=== PATIENT | female | born 1970 | race Caucasian/White ===

== ENCOUNTER 2023-01-31 14:02 | Emergency (ER) | payer BC, SELFPAY ==
[2023-01-31 14:15] VITALS: BP 149/91; PULSE 78; RESP 18; TEMP 37.2; O2SAT 100; BMI 28.3
--- NOTE | 2023-01-31 14:20 | EXP.UTC ---
Discharge Plan Disposition Patient Disposition: Home, Self-Care Condition: Good Prescriptions Prescriptions: New amoxicillin [amoxicillin] 875 mg tablet 875 mg PO Q12H Qty: 20 0RF benzonatate [benzonatate] 100 mg capsule 100 mg PO TIDP PRN (Reason: Cough) Qty: 30 0RF methylprednisolone 4 mg Tablets,Dose Pack 4 mg PO DIRECTED Qty: 21 0RF No Action losartan 50 mg tablet 50 mg PO DAILY clonidine HCl 0.1 mg tablet 0.15 mg PO DAILY Patient Comments: TAKE 1 AND 1/2 TABLETS BY MOUTH AT BEDTIME FOR TEETH GRINDING buspirone 10 mg tablet 10 mg PO DAILY hydroxyzine HCl 25 mg tablet 25 mg PO BID PRN (Reason: Anxiety) Patient Comments: TAKE 1 OR 2 TABLETS BY MOUTH 2 TIMES DAILY NEEDED FOR ANXIETY hydrochlorothiazide 25 mg tablet 25 mg PO DAILY Patient Comments: TAKE 1 TABLET BY MOUTH DAILY norethindrone ac-eth estradiol 1-20 mg-mcg tablet 1 tab PO DAILY Patient Comments: TAKE 1 TABLET BY MOUTH ONCE DAILY metformin 500 mg tablet extended release 24 hr 500 mg PO DAILY Patient Comments: TAKE 1 TABLET BY MOUTH DAILY WITH BREAKFAST desvenlafaxine succinate 25 mg tablet extended release 24 hr 25 mg PO DAILY Patient Comments: TAKE 1 TABLET BY MOUTH EVERY DAY Referrals Follow up/Referrals: Provider,Referral, MD [Primary Care Provider] - See instructions Activity Restrictions/Add. Instructions Additional Instructions/Restrictions: Drink plenty of fluids. Take tylenol or ibuprofen for pain or fever. Take the medications as directed. Follow up with your regular doctor. GO TO THE ER FOR ANY WORSENING SYMPTOMS Clinical Impressions Clinical Impression: Otitis media, Sinusitis Stand Alone Forms Stand Alone Forms: Work/School Release Instructions Patient Instructions: Sinusitis, Middle Ear Infection, DI for Sinusitis Discharge ED Provider: Miguel Seay [facility] HPI General Stated complaint: upper respitory, sore throat,ear pain Time Seen by Provider: 01/31/23 14:20 History of Present Illness Provider Complaint: She states that for the past 2 days she has had worsening sinus congestion and sore throat. Related Data Home Medications Medication Instructions Recorded Confirmed buspirone 10 mg tablet 10 mg PO DAILY 01/31/23 01/31/23 clonidine HCl 0.1 mg tablet 0.15 mg PO DAILY teeth grinding 01/31/23 01/31/23 desvenlafaxine succinate 25 mg 25 mg PO DAILY 01/31/23 01/31/23 tablet,extended release 24 hr hydrochlorothiazide 25 mg tablet 25 mg PO DAILY 01/31/23 01/31/23 hydroxyzine HCl 25 mg tablet 25 mg PO BID PRN Anxiety 01/31/23 01/31/23 losartan 50 mg tablet 50 mg PO DAILY 01/31/23 01/31/23 metformin 500 mg tablet,extended 500 mg PO DAILY 01/31/23 01/31/23 release 24 hr norethindrone acetate 1 mg-ethinyl 1 tab PO DAILY b/c 01/31/23 01/31/23 estradiol 20 mcg tablet Previous Rx's Medication Instructions Recorded amoxicillin 875 mg tablet 875 mg PO Q12H #20 tabs 01/31/23 benzonatate 100 mg capsule 100 mg PO TIDP PRN Cough #30 caps 01/31/23 methylprednisolone 4 mg tablets in 4 mg PO DIRECTED #21 tabs 01/31/23 a dose pack Allergies Allergy/AdvReac Type Severity Reaction Status Date / Time bupropion [From Wellbutrin] Allergy Verified 01/31/23 14:34 ciprofloxacin [From Cipro] Allergy Verified 01/31/23 14:34 [facility] Disclaimer: The information contained in this section may have been updated after the patient was seen, as this information can be updated by other users. Social History Smoking Status: Never smoker alcohol intake: never current occupational status: employed Travel in the last 8 weeks: None ROS Obtained: Yes All systems reviewed & no additional complaints except as documented Constitutional Constitutional: Reports chills and Reports fever(s) Eyes Eyes: Denies eye discharge ENT Ears, Nose, Mouth, and Throat: Reports as per HPI Cardiovascul
[2023-01-31 14:31] LABS: UTC Strep Screen (Rapid) Negative (Negative)
[2023-01-31 15:05] VITALS: BP 149/91; PULSE 78; RESP 18; TEMP 37.2; O2SAT 100
== END 2023-01-31 15:05 | disposition home or self-care (01) ==
PROVIDERS: Emergency Provider Nurse Practitioner Family; PCP Pediatrics
DX: J01.90 Acute sinusitis, unspecified (principal); H66.93 Otitis media, unspecified, bilateral; J02.9 Acute pharyngitis, unspecified; R09.81 Nasal congestion
CPT/HCPCS: 87880; 99204; 99212; G0463

== ENCOUNTER 2024-01-29 12:23 | Inpatient (IN) | payer BC, SELFPAY ==
[2024-01-29] VITALS (14 sets, daily range): BP systolic 127–160; BP diastolic 74–98; PULSE 80–110; RESP 18; TEMP 36.8–36.9; O2SAT 97–100; BMI 28.3
[2024-01-29 13:16] LABS: Microscopic, Urine URINE MICROSCOPIC (MICROSCOPIC)
--- NOTE | 2024-01-29 13:19 | ED_ITS ---
<Statement entered by Ada Kwan DO - 01/29/24 22:59> I was consulted by the JOHNATHAN, and we discussed the complexity of the problems being addressed. I approved the treatment and management plan for this patient's care in the emergency department, thus performing a substantive portion of the medical decision making. I was involved with care after time of signout from previous provider at 1500 Ada Kwan DO Discharge Plan Disposition Patient Disposition: Admitted Prescriptions Prescriptions: No Action losartan 50 mg tablet 50 mg PO DAILY clonidine HCl 0.1 mg tablet 0.15 mg PO DAILY Patient Comments: TAKE 1 AND 1/2 TABLETS BY MOUTH AT BEDTIME FOR TEETH GRINDING buspirone 10 mg tablet 10 mg PO DAILY hydroxyzine HCl 25 mg tablet 25 mg PO BID PRN (Reason: Anxiety) Patient Comments: TAKE 1 OR 2 TABLETS BY MOUTH 2 TIMES DAILY NEEDED FOR ANXIETY hydrochlorothiazide 25 mg tablet 25 mg PO DAILY Patient Comments: TAKE 1 TABLET BY MOUTH DAILY norethindrone ac-eth estradiol 1-20 mg-mcg tablet 1 tab PO DAILY Patient Comments: TAKE 1 TABLET BY MOUTH ONCE DAILY metformin 500 mg tablet extended release 24 hr 500 mg PO DAILY Patient Comments: TAKE 1 TABLET BY MOUTH DAILY WITH BREAKFAST desvenlafaxine succinate 25 mg tablet extended release 24 hr 25 mg PO DAILY Patient Comments: TAKE 1 TABLET BY MOUTH EVERY DAY amoxicillin [amoxicillin] 875 mg tablet 875 mg PO Q12H Qty: 20 0RF benzonatate [benzonatate] 100 mg capsule 100 mg PO TIDP PRN (Reason: Cough) Qty: 30 0RF methylprednisolone 4 mg Tablets,Dose Pack 4 mg PO DIRECTED Qty: 21 0RF Referrals Follow up/Referrals: Rain Watts MD [Primary Care Provider] - See instructions Clinical Impressions Clinical Impression: Sepsis without septic shock, Acute hemorrhagic colitis Print Language Print Language: Libyan Discharge ED Provider: Ada Kwan General Adult HPI <DAMARIS Rayo - Last Filed: 01/29/24 17:17> General Chief complaint: Abdominal Pain Stated complaint: stomach pain Time Seen by Provider: 01/29/24 13:04 Mode of Arrival: Ambulatory Source of Information: Patient Limitations: No Limitations Description of Symptoms (Recalled from ER Triage Doc. by RN): PT REPORTS LOWER ABDOMINAL PAIN AND CRAMPING THAT STARTED ABOUT 0900 THIS AM. PT C/O NAUSEA, EMESIS X 1 AND BLOODY DIARRHEA History of Present Illness HPI narrative: Patient presents for evaluation of lower abdominal pain. Patient woke up this morning and around 9 AM began having crampy abdominal pain. She has since started having diarrhea that she noticed blood as well. She denies any fever chills hemoptysis hematochezia melena. Patient has never had abdominal surgery. She does not have any previous history of GI issues including Crohn's ulcerative colitis IBS or diverticulitis however her mother does have a history of diverticulosis and diverticulitis. Patient was unable to keep down fluids this morning has not tried since. She is still passing gas however. She denies any fever chills hemoptysis hematemesis hematuria. She is a diabetic maintained on insulin has a history of high blood pressure on losartan and hydrochlorothiazide, and depression. Related Data Home Medications ?Medication ?Instructions ?Recorded ?Confirmed buspirone 10 mg tablet 10 mg PO DAILY 01/31/23 01/31/23 clonidine HCl 0.1 mg tablet 0.15 mg PO DAILY teeth grinding 01/31/23 01/31/23 desvenlafaxine succinate 25 mg 25 mg PO DAILY 01/31/23 01/31/23 tablet,extended release 24 hr hydrochlorothiazide 25 mg tablet 25 mg PO DAILY 01/31/23 01/31/23 hydroxyzine HCl 25 mg tablet 25 mg PO BID PRN Anxiety 01/31/23 01/31/23 losartan 50 mg tablet 50 mg PO DAILY 01/31/23 01/31/23 metformin 500 mg tablet,extended 500 mg PO DAILY 01/31/23 01/31/23 release 24 hr norethindrone acetate 1 mg-ethinyl 1 tab PO DAILY b/c 01/31/23 01/31/23 estradiol 20 mcg tablet Previous Rx's ?Medication ?Instructions ?Recorded amoxicillin 875 mg tablet 875 mg PO Q12H #20 tabs 01/31/23 benzonatate 100 mg capsule 100 mg PO TIDP PRN Cough #30 caps 01/31/23 methylprednisolone 4 mg tablets in 4 mg PO DIRECTED #21 tabs 01/31/23 a dose pack Allergies Allergy/AdvReac Type Severity Reaction Status Date / Time bupropion [From Wellbutrin] Allergy Verified 01/31/23 14:34 ciprofloxacin [From Cipro] Allergy Verified 01/31/23 14:34 PFS <DAMARIS Rayo - Last Filed: 01/29/24 17:17> [facility] Disclaimer: The information contained in this section may have been updated after the patient was seen, as this information can be updated by other users. Social History (Updated 01/31/23 @ 15:03 by Miguel Seay APRN) Smoking Status: Never smoker alcohol intake: never current occupational status: employed Travel in the last 8 weeks: None <DAMARIS Rayo - Last Filed: 01/29/24 17:17> ROS Obtained: Yes Systems reviewed as appropriate & no additional complaints except as documented Physical Exam <DAMARIS Rayo - Last Filed: 01/29/24 17:17> General General appearance: alert and in no apparent distress Neck Neck exam: Present lymphadenopathy Respiratory Respiratory exam: Present normal lung sounds bilaterally Cardiovascular Cardiovascular exam: Present regular rate Neurological Exam Neurological exam: Present alert and oriented X3 Medical Decision Making <DAMARIS Rayo - Last Filed: 01/29/24 17:17> Medical Records Medical records reviewed: Yes I reviewed the patient's medical records. Screening: Per USPSTF and CDC recommendations, given the prevalence of disease in our region, it is our hospital?s policy to screen for HIV and viral Hepatitis for all patients aged 18 and over and those with ongoing risk factors. Kit Inquiry Pt receiving controlled substance: No Vital Signs: 01/29/24 12:25 01/29/24 12:31 01/29/24 13:00 Temperature 98.4 F Temperature Source Oral Pulse Rate 110 H 99 H Pulse Rate [Radial] 90 Respiratory Rate 18 Blood Pressure 150/98 H 139/82 Blood Pressure [Right Arm] 150/98 H Blood Pressure Mean 112 104 Blood Pressure Mean [Right Arm] 115 Blood Pressure Source [Right Arm] Automatic Cuff Blood Pressure Position [Right Arm] Sitting 02 Sat by Pulse Oximetry 100 99 99 Oxygen Delivery Method Room Air Room Air Room Air 01/29/24 13:30 01/29/24 14:00 01/29/24 14:30 Temperature Temperature Source Pulse Rate 95 H 87 85 Pulse Rate [Radial] Respiratory Rate Blood Pressure 139/85 145/88 H 129/74 Blood Pressure [Right Arm] Blood Pressure Mean 95 Blood Pressure Mean [Right Arm] Blood Pressure Source [Right Arm] Blood Pressure Position [Right Arm] 02 Sat by Pulse Oximetry 100 98 99 Oxygen Delivery Method Room Air Room Air Room Air 01/29/24 15:00 01/29/24 15:30 Temperature Temperature Source Pulse Rate 87 93 H Pulse Rate [Radial] Respiratory Rate Blood Pressure 132/86 145/93 H Blood Pressure [Right Arm] Blood Pressure Mean Blood Pressure Mean [Right Arm] Blood Pressure Source [Right Arm] Blood Pressure Position [Right Arm] 02 Sat by Pulse Oximetry 99 98 Oxygen Delivery Method Room Air Room Air Lab Data Lab results reviewed: Yes I reviewed the patient's lab results. Lab Results 01/29/24 12:35: WBC 20.5 H*, RBC 5.03, Hgb 15.3, Hct 43.4, MCV 86.2, MCH 30.4, MCHC 35.3, RDW 13.6, Plt Count 357, MPV 9.6, Neut % (Auto) 87.9 H, Lymph % (Auto) 8.8 L, [place] % (Auto) 2.8, Eos % (Auto) 0.2, Baso % (Auto) 0.3, Neut # (Auto) 18.0 H, Lymph # (Auto) 1.8, [place] # (Auto) 0.6, Eos # (Auto) 0.0, Baso # (Auto) 0.1, Total Counted 100, Neutrophils % (Manual) 88 H, Lymphocytes % (Manual) 10, Monocytes % (Manual) 2, Platelet Estimate Normal, RBC Morphology Normal, PT 10.3, INR 0.91, Sodium 138, Potassium 3.3 L, Chloride 100, Carbon Dioxide 28, Anion Gap 13.3, BUN 18 H, Creatinine 0.90, Estimated Creat Clear 85, Estimated GFR 66, Est GFR ( Amer) 80, Glucose 133 H, Calcium 9.6, Total Bilirubin 0.7, AST 43 H, ALT 34, Alkaline Phosphatase 146 H, Total Protein 8.2, Albumin 4.5, Globulin 3.7 H, Albumin/Globulin Ratio 1.2, Lipase 48, Procalcitonin 0.071, Serum HCG, Qual Negative, HIV 1&2 Antibody Rapid Nonreactive 01/29/24 12:39: Urine Color Yellow, Urine Appearance Clear, Urine pH 6.5, Ur Specific [place] >= 1.030, Urine Protein 2+ A, Urine Glucose (UA) Trace, Urine Ketones 1+, Urine Blood 2+ A, Urine Nitrate Positive, Urine Bilirubin 2+ A, Urine Urobilinogen 1.0, Ur Leukocyte Esterase Trace, Urine RBC None, Urine WBC None, Ur Squamous Epith Cells Occasional, Urine Bacteria None 01/29/24 14:29: Lactate 1.4 01/29/24 12:35 01/29/24 12:35 Orders (Tests/Meds): ED MEDICATIONS Generic Name Dose Route Start Last Admin Trade Name Fresudha PRN Reason Stop Dose Admin Sodium Chloride 10 ml 01/29/24 14:19 01/29/24 14:20 Sodium Chloride 0.9% 10ml Syr (Rad Only) IV 02/28/24 14:18 10 ml NEEDED PRN Administration Maintain IV Site Discontinued Medications Generic Name Dose Route Start Last Admin Trade Name Freq PRN Reason Stop Dose Admin Acetaminophen 1,000 mg 01/29/24 13:21 01/29/24 13:43 Acetaminophen 1,000mg/100ml Vial IV 01/29/24 13:22 1,000 mg ONCE ONE Administration Hydromorphone HCl 0.5 mg 01/29/24 16:10 01/29/24 16:21 Hydromorphone 2mg/Ml Syringe IV 01/29/24 16:11 0.5 mg ONCE ONE Administration Piperacillin Sod/Tazobactam 50 mls @ 100 mls/hr 01/29/24 16:42 01/29/24 17:12 Sod 3.375 gm/ Sodium Chloride IV 01/29/24 17:11 100 mls/hr ONCE ONE Administration Iopamidol 75 ml 01/29/24 14:19 01/29/24 14:20 Iopamidol-370 (76%);100ml Bottle IV 01/29/24 14:20 75 ml ONCE ONE Administration Morphine Sulfate 2 mg 01/29/24 13:21 01/29/24 13:43 Morphine 2mg/Ml Syringe IV 01/29/24 13:22 2 mg ONCE ONE Administration Ondansetron HCl 4 mg 01/29/24 14:35 01/29/24 15:10 Ondansetron 4mg/2ml Vial IV 01/29/24 14:36 4 mg ONCE ONE Administration ORDERS Category Date Time Status CT abdomen pelvis w con Stat Cat Scan 01/29/24 13:[address] angio abdomen pelvis Stat Cat Scan 01/29/24 16:51 Ordered GI consult [Consult to Gastroenterology] [CONS] Routine Cons 01/29/24 17:15 Active CBC w/Auto Diff [Complete Blood Count Auto Diff] Stat Lab 01/29/24 12:35 Completed CMP [Comprehensive Metabolic Panel] Stat Lab 01/29/24 12:35 Completed Complete Blood Count Auto Diff AMLAB Lab 01/30/24 06:00 Ordered Comprehensive Metabolic Panel AMLAB Lab 01/30/24 06:00 Ordered Diarrhea 23 Panel, PCR Stat Lab 01/29/24 16:11 Ordered HCG Qualitative, Serum Stat Lab 01/29/24 12:35 Completed HIV (1&2) Antibody Rapid Stat Lab 01/29/24 12:35 Completed Hep C Ab with Reflex to RNA Stat Lab 01/29/24 12:35 Received INR [Prothrombin Time INR] Stat Lab 01/29/24 12:35 Completed Lactic Acid Stat Lab 01/29/24 14:29 Completed Lipase Stat Lab 01/29/24 12:35 Completed Magnesium AMLAB Lab 01/30/24 06:00 Ordered Occult Blood,Stool Stat Lab 01/29/24 13:25 Ordered Procalcitonin Stat Lab 01/29/24 12:35 Completed UA [Urinalysis and Microscopic] Stat Lab 01/29/24 12:39 Completed Blood Culture Stat Micro 01/29/24 14:50 Received Tissue Perfus/Sepsis Re-Eval Sepsis Re-Evaluation Performed: Yes Date Performed: 01/29/24 Time Performed: 14:37 Medical Decision Narrative: In summary patient is a 53-year-old female who presents to the emergency department for evaluation of abdominal pain and reported bloody diarrhea. Patient is hemodynamically stable upon arrival, afebrile. His exam is remarkable for moderate abdominal tenderness however her exam is benign soft with no rebound no guarding or rigidity and normal bowel sounds. Differential diagnosis includes factious diarrhea versus inflammatory diarrhea versus diverticulitis etc. Initial workup will be conducted with hematologic labs CT scan abdomen pelvis urinalysis. Initial interventions include Tylenol and morphine. Initial workup reviewed by me patient is significant white count of 20,000 with a neutrophilic shift but normal lactate procalcitonin is normal but detectable and my informal interpretation of her CT scan abdomen pelvis shows colonic wall thickening with stranding of the transverse descending colon with colitis. Considered giving a sepsis bolus but patient has been actually normal to hypertensive with stable vital signs and nontoxic throughout her stay thus deferred. Upon repeat evaluation patient has had recurrence of her pain in the interval. Given this while patient remains hemodynamically stable she has significant sepsis likely due to an infectious organism thus had interactive discussion with hospital medicine regarding patient management and she will be admitted for further evaluation and care I was consulted by the JOHNATHAN, and we discussed the complexity of the problems being addressed. I approved the treatment and management plan for this patient's care in the emergency department, thus performing a substantive portion of the medical decision making. Jacobo Pérez MD <Jacobo Pérez MD - Last Filed: 01/29/24 16:15> Vital Signs: 01/29/24 12:25 01/29/24 12:31 01/29/24 13:00 Temperature 98.4 F Temperature Source Oral Pulse Rate 110 H 99 H Pulse Rate [Radial] 90 Respiratory Rate 18 Blood Pressure 150/98 H 139/82 Blood Pressure [Right Arm] 150/98 H Blood Pressure Mean 112 104 Blood Pressure Mean [Right Arm] 115 Blood Pressure Source [Right Arm] Automatic Cuff Blood Pressure Position [Right Arm] Sitting 02 Sat by Pulse Oximetry 100 99 99 Oxygen Delivery Method Room Air Room Air Room Air 01/29/24 13:30 01/29/24 14:00 01/29/24 14:30 Temperature Temperature Source Pulse Rate 95 H 87 85 Pulse Rate [Radial] Respiratory Rate Blood Pressure 139/85 145/88 H 129/74 Blood Pressure [Right Arm] Blood Pressure Mean 95 Blood Pressure Mean [Right Arm] Blood Pressure Source [Right Arm] Blood Pressure Position [Right Arm] 02 Sat by Pulse Oximetry 100 98 99 Oxygen Delivery Method Room Air Room Air Room Air 01/29/24 15:00 01/29/24 15:30 Temperature Temperature Source Pulse Rate 87 93 H Pulse Rate [Radial] Respiratory Rate Blood Pressure 132/86 145/93 H Blood Pressure [Right Arm] Blood Pressure Mean Blood Pressure Mean [Right Arm] Blood Pressure Source [Right Arm] Blood Pressure Position [Right Arm] 02 Sat by Pulse Oximetry 99 98 Oxygen Delivery Method Room Air Room Air Lab Data Lab Results 01/29/24 12:35: WBC 20.5 H*, RBC 5.03, Hgb 15.3, Hct 43.4, MCV 86.2, MCH 30.4, MCHC 35.3, RDW 13.6, Plt Count 357, MPV 9.6, Neut % (Auto) 87.9 H, Lymph % (Auto) 8.8 L, [place] % (Auto) 2.8, Eos % (Auto) 0.2, Baso % (Auto) 0.3, Neut # (Auto) 18.0 H, Lymph # (Auto) 1.8, [place] # (Auto) 0.6, Eos # (Auto) 0.0, Baso # (Auto) 0.1, Total Counted 100, Neutrophils % (Manual) 88 H, Lymphocytes % (Manual) 10, Monocytes % (Manual) 2, Platelet Estimate Normal, RBC Morphology Normal, PT 10.3, INR 0.91, Sodium 138, Potassium 3.3 L, Chloride 100, Carbon Dioxide 28, Anion Gap 13.3, BUN 18 H, Creatinine 0.90, Estimated Creat Clear 85, Estimated GFR 66, Est GFR ( Amer) 80, Glucose 133 H, Calcium 9.6, Total Bilirubin 0.7, AST 43 H, ALT 34, Alkaline Phosphatase 146 H, Total Protein 8.2, Albumin 4.5, Globulin 3.7 H, Albumin/Globulin Ratio 1.2, Lipase 48, Procalcitonin 0.071, Serum HCG, Qual Negative, HIV 1&2 Antibody Rapid Nonreactive 01/29/24 12:39: Urine Color Yellow, Urine Appearance Clear, Urine pH 6.5, Ur Specific [place] >= 1.030, Urine Protein 2+ A, Urine Glucose (UA) Trace, Urine Ketones 1+, Urine Blood 2+ A, Urine Nitrate Positive, Urine Bilirubin 2+ A, Urine Urobilinogen 1.0, Ur Leukocyte Esterase Trace, Urine RBC None, Urine WBC None, Ur Squamous Epith Cells Occasional, Urine Bacteria None 01/29/24 14:29: Lactate 1.4 Orders (Tests/Meds): ED MEDICATIONS Generic Name Dose Route Start Last Admin Trade Name Freq PRN Reason Stop Dose Admin Sodium Chloride 10 ml 01/29/24 14:19 01/29/24 14:20 Sodium Chloride 0.9% 10ml Syr (Rad Only) IV 02/28/24 14:18 10 ml NEEDED PRN Administration Maintain IV Site Discontinued Medications Generic Name Dose Route Start Last Admin Trade Name Freq PRN Reason Stop Dose Admin Acetaminophen 1,000 mg 01/29/24 13:21 01/29/24 13:43 Acetaminophen 1,000mg/100ml Vial IV 01/29/24 13:22 1,000 mg ONCE ONE Administration Hydromorphone HCl 0.5 mg 01/29/24 16:10 01/29/24 16:21 Hydromorphone 2mg/Ml Syringe IV 01/29/24 16:11 0.5 mg ONCE ONE Administration Piperacillin Sod/Tazobactam 50 mls @ 100 mls/hr 01/29/24 16:42 01/29/24 17:12 Sod 3.375 gm/ Sodium Chloride IV 01/29/24 17:11 100 mls/hr ONCE ONE Administration Iopamidol 75 ml 01/29/24 14:19 01/29/24 14:20 Iopamidol-370 (76%);100ml Bottle IV 01/29/24 14:20 75 ml ONCE ONE Administration Morphine Sulfate 2 mg 01/29/24 13:21 01/29/24 13:43 Morphine 2mg/Ml Syringe IV 01/29/24 13:22 2 mg ONCE ONE Administration Ondansetron HCl 4 mg 01/29/24 14:35 01/29/24 15:10 Ondansetron 4mg/2ml Vial IV 01/29/24 14:36 4 mg ONCE ONE Administration ORDERS Category Date Time Status CT abdomen pelvis w con Stat Cat Scan 01/29/24 13:[address] angio abdomen pelvis Stat Cat Scan 01/29/24 16:51 Ordered GI consult [Consult to Gastroenterology] [CONS] Routine Cons 01/29/24 17:15 Active CBC w/Auto Diff [Complete Blood Count Auto Diff] Stat Lab 01/29/24 12:35 Completed CMP [Comprehensive Metabolic Panel] Stat Lab 01/29/24 12:35 Completed Complete Blood Count Auto Diff AMLAB Lab 01/30/24 06:00 Ordered Comprehensive Metabolic Panel AMLAB Lab 01/30/24 06:00 Ordered Diarrhea 23 Panel, PCR Stat Lab 01/29/24 16:11 Ordered HCG Qualitative, Serum Stat Lab 01/29/24 12:35 Completed HIV (1&2) Antibody Rapid Stat Lab 01/29/24 12:35 Completed Hep C Ab with Reflex to RNA Stat Lab 01/29/24 12:35 Received INR [Prothrombin Time INR] Stat Lab 01/29/24 12:35 Completed Lactic Acid Stat Lab 01/29/24 14:29 Completed Lipase Stat Lab 01/29/24 12:35 Completed Magnesium AMLAB Lab 01/30/24 06:00 Ordered Occult Blood,Stool Stat Lab 01/29/24 13:25 Ordered Procalcitonin Stat Lab 01/29/24 12:35 Completed UA [Urinalysis and Microscopic] Stat Lab 01/29/24 12:39 Completed Blood Culture Stat Micro 01/29/24 14:50 Received Medical Decision Narrative: In summary patient is a 53-year-old female who presents to the emergency department for evaluation of abdominal pain and reported bloody diarrhea. Patient is hemodynamically stable upon arrival, afebrile. His exam is remarkable for moderate abdominal tenderness however her exam is benign soft with no rebound no guarding or rigidity and normal bowel sounds. Differential diagnosis includes factious diarrhea versus inflammatory diarrhea versus diverticulitis etc. Initial workup will be conducted with hematologic labs CT scan abdomen pelvis urinalysis. Initial interventions include Tylenol and morphine. Initial workup reviewed by me [hematologic labs are remarkable for... Imaging remarkable for... Urinalysis remarkable for]. Upon repeat evaluation [patient had acceptable resolution of symptoms, had persistent pain for which additional interventions were conducted (describe interventions), tolerated p.o., was ambulatory, etc.]. Given this [patient is appropriate for discharge at this time and will be discharged with a prescription for... The case was discussed with hospital medicine regarding management and they will admit the patient their service for continued evaluation at this time... Etc.] I was consulted by the JOHNATHAN, and we discussed the complexity of the problems being addressed. I approved the treatment and management plan for this patient's care in the emergency department, thus performing a substantive portion of the medical decision making. Jacobo Pérez MD Critical Care <Jacobo Pérez MD - Last Filed: 01/29/24 16:15> Critical Care Time Critical Care Time: No
--- NOTE | 2024-01-29 13:23 | CT_ITS ---
FINAL REPORT CLINICAL HISTORY: Abdominal pain COMPARISON: None FINDINGS: CT OF THE ABDOMEN AND PELVIS WITH CONTRAST Axial CT images of the abdomen and pelvis were obtained after the administration of IV contrast. Coronal and sagittal reformatted images were also obtained and reviewed. This study was performed with techniques to keep radiation doses as low as reasonably achievable (ALARA). Individualized dose reduction techniques using automated exposure control or adjustment of mA and/or kV according to the patient's size were employed. Abdomen: The lung bases are clear. The heart is normal in size. The liver has an unremarkable appearance, without evidence of mass or biliary ductal dilatation. The spleen is unremarkable. No adrenal mass is present. The pancreas has an unremarkable appearance. The kidneys are normal, without evidence of mass or hydronephrosis. Note is made of a right renal less than 3 mm in size nonobstructing stone. The aorta is normal in caliber. There is no free fluid or adenopathy. No mass or abnormal fluid collection is seen. There is wall thickening of the distal transverse colon, splenic flexure, and descending colon, with adjacent stranding, consistent with colitis. Pelvis: The appendix is normal in appearance. The urinary bladder is unremarkable. Several sigmoid diverticula are noted, without evidence of acute inflammatory change. There is no evidence of mass or adenopathy. There is no evidence of bowel obstruction. IMPRESSION: Wall thickening of the distal transverse colon, splenic flexure, and descending colon, with adjacent stranding consistent with colitis. Reviewed, Interpreted and Dictated by Chintan Harrington III, MD Transcribed by Sharri Cao Authenticated and [facility]
[2024-01-29 13:32] LABS: Basophils # 0.1 K/mm3 (0-0.2); Basophils % 0.3 % (0.1-2.0); Eosinophils % 0.2 % (0.1-12.0); Hematocrit 43.4 % (37.0-47.0); Hemoglobin 15.3 g/dL (12.2-16.2); Lymphocytes # 1.8 K/mm3 (0.7-4.5); Lymphocytes % 8.8 % (10-50); Mean Corpuscular HGB Conc 35.3 g/dL (31.8-35.4); Mean Corpuscular Hemoglobin 30.4 pg (27.0-31.2); Mean Corpuscular Volume 86.2 fl (81-99); Mean Platelet Volume 9.6 fl (7.4-10.4); Monocytes # 0.6 K/mm3 (0.1-1.0); Monocytes % 2.8 % (1.7-9.3); Neutrophils % 87.9 % (37.0-80.0); Platelet Count 357 K/mm3 (142-424); Red Blood Count 5.03 M/mm3 (4.20-5.40); Red Cell Distribution Width 13.6 % (11.5-17.5); White Blood Count 20.5 K/mm3 (4.8-10.8)
[2024-01-29 13:33] LABS: Appearance,Urine CLEAR (Clear); Blood, Urine 2+ (Negative); Color,Urine YELLOW (Yellow); Glucose,Urine (UA) TRACE (Negative); Ketones,Urine 1+ (Negative); Leukocyte Esterase,Urine TRACE (Negative); Nitrate,Urine POSITIVE (Negative); PH,Urine 6.5 (5.0-8.5); Protein,Urine 2+ (Negative); Specific Gravity, Urine >= 1.030 (1.005-1.030)
[2024-01-29 13:37] LABS: INR 0.91 (0.9-1.1); Prothrombin Time 10.3 seconds (10.1-12.5)
[2024-01-29 13:38] LABS: Alanine Aminotransferase 34 U/L (12-78); Albumin Level 4.5 g/dl (3.5-5.0); Albumin/Globulin Ratio 1.2 (1.1-1.8); Alkaline Phosphatase 146 U/L (38-126); Anion Gap 13.3 mEq/L (5-15); Aspartate Amino Transferase 43 U/L (14-36); Bilirubin,Total 0.7 mg/dl (0.2-1.3); Blood Urea Nitrogen 18 mg/dl (7-17); Calcium 9.6 mg/dl (8.4-10.2); Carbon Dioxide 28 mmol/L (22.0-30.0); Chloride 100 mmol/L (98-107); Creatinine Clearance Estimated 85 mL/min (50-200); Estimated Glomerular Filt Rate 66 ml/min (>60); GFR (African American) 80 ML/MIN (>60); Globulin 3.7 g/dL (1.3-3.2); Glucose 133 mg/dl (74-100); Potassium 3.3 mmoL/L (3.5-5.1); Sodium 138 mmol/L (136-145); Total Protein,Serum 8.2 g/dl (6.3-8.2)
[2024-01-29] MEDS: MORPHINE 2MG/ML SYRINGE 2 MG IV ×2 (13:43→21:46)
[2024-01-29] MEDS: ACETAMINOPHEN 1,000MG/100ML VIAL 1000 MG IV (13:43)
[2024-01-29 13:58] LABS: MANUAL DIFFERENTIAL MANUAL DIFFERENTIAL (MANUAL DIFF)
[2024-01-29 13:58] LABS: Bilirubin,Urine 2+ (Negative)
[2024-01-29 14:01] LABS: Squamous Epithelial Cell,Urine Occasional #/hpf (0-5)
[2024-01-29 14:03] LABS: HCG Qualitative, Serum Negative (Negative)
[2024-01-29 14:13] LABS: Lymphocytes % 10 % (10-50); Monocytes % 2 % (2-9); Neutrophils % 88 % (42-76); Platelet Estimate Normal; RBC Morphology Normal; Total Cells Counted 100
--- NOTE | 2024-01-29 14:15 | PC.NURSE ---
PT AT CT
[2024-01-29 14:20] LABS: Lipase 48 U/L (23-300)
[2024-01-29] MEDS: IOPAMIDOL-370 (76%);100ML BOTTLE 75 ML IV (14:20)
[2024-01-29] MEDS: SODIUM CHLORIDE 0.9% 10ML SYR (RAD ONLY) 10 ML IV ×2 (14:20→18:05)
[2024-01-29 14:38] LABS: Procalcitonin 0.071 ng/mL (0.0-2.0)
[2024-01-29 14:43] LABS: Lactic Acid 1.4 mmol/L (0.7-2.1)
[2024-01-29] MEDS: ONDANSETRON 4MG/2ML VIAL 4 MG IV (15:10)
[2024-01-29 16:00] LABS: HIV (1&2) Antibody Rapid NONREACTIVE (NONREACTIVE)
[2024-01-29] MEDS: HYDROMORPHONE 2MG/ML SYRINGE 0.5 MG IV (16:21)
--- NOTE | 2024-01-29 16:51 | CT_ITS ---
PROCEDURE INFORMATION: Exam: CTA Abdomen and Pelvis With Contrast Exam date and time: 01/29/2024 6:00 PM Age: 53 years old Clinical indication: Other: Hemorrhagic pebbles colitis TECHNIQUE: Imaging protocol: Computed tomographic angiography of the abdomen and pelvis with contrast. Exam focused on the arteries. 3D rendering (Not supervised by radiologist): MIP and/or 3D reconstructed images were created by the technologist. Radiation optimization: All CT scans at this facility use at least one of these dose optimization techniques: automated exposure control; mA and/or kV adjustment per patient size (includes targeted exams where dose is matched to clinical indication); or iterative reconstruction. Contrast material: ISOVUE 370; Contrast volume: 80 ml; Contrast route: INTRAVENOUS (IV); COMPARISON: CT ABDOMEN PELVIS W CON 01/29/2024 2:16 PM FINDINGS: Lungs: Mild atelectasis in the lung bases. Granulomatous calcification in the lingula. Heart: Heart size normal. Esophagus: The visualized distal esophagus is largely contracted without gross abnormality. Aorta: Distal thoracic aorta is unremarkable. Abdominal aorta is unremarkable. Celiac trunk and mesenteric arteries: Celiac artery and its major branch vessels are normal. SMA and its major branch vessels are normal. HANNAH and its major branch vessels are normal. Renal arteries: Right renal artery is normal. The primary left renal artery is normal. There is also a small accessory left renal artery present which is normal. Right iliac arteries: Right iliac arteries are normal. Left iliac arteries: Left iliac arteries are normal. Liver: Normal contour. No mass lesions. No intrahepatic biliary ductal dilatation. Gallbladder and biliary ducts: Question small volume layering isodense content in the gallbladder suspicious for sludge or small noncalcified stones. No cholecystitis. Nondilated bile ducts. Pancreas: Normal. No inflammatory changes or ductal dilation. Spleen: Granulomatous calcifications in the spleen without acute splenic abnormality. Adrenal glands: Normal. No adrenal mass. Kidneys and ureters: There is excreted contrast in the bilateral renal collecting systems from the recent prior CT scan. No hydronephrosis. No acute renal abnormalities are evident. Stomach and bowel: Stomach contains moderate fluid content without dilatation, otherwise unremarkable. The small bowel is nondilated with no gross abnormality. Moderate bowel wall thickening in the distal colon consistent with colitis. No perforation or abscess. Distribution/severity grossly unchanged from 2:18 p.m.. No sites of suspected active GI hemorrhage are identified currently, although the single phase technique offers limited sensitivity for active GI hemorrhage, with no precontrast imaging or delayed phase imaging provided. There is mild sigmoid diverticulosis with hyperdense content in several of the diverticula which is unchanged from the scan at 2:18 p.m., which goes against active hemorrhage and would favor hyperdense fecal content. If there is strong clinical suspicion for active hemorrhage, nuclear medicine GI bleeding tagged RBC scan would offer greater sensitivity/specificity. Appendix: The appendix is normal in caliber and demonstrates no evidence of appendicitis. Intraperitoneal space: No peritoneal free fluid or air. Lymph nodes: No adenopathy. Urinary bladder: Bladder filled with hyperdense excreted contrast from the recent prior CT, without evidence of acute abnormality. Reproductive: Unremarkable as visualized. Bones/joints: No acute osseous abnormalities. Soft tissues: No acute soft tissue abnormalities. Very small fatty umbilical hernia . No evidence of associated bowel herniation or strangulation. IMPRESSION: 1. No evidence of active GI hemorrhage currently, although examination is technically limited as detailed above. 2. Moderate changes of colitis in the mid to distal colon, stable from prior scan at 2:18 p.m.. No perforation or abscess. 3. There is mild sigmoid diverticulosis without evidence of diverticulitis. Several of these diverticula have hyperdense content, however the appearance is stable from the scan at 2:18 p.m., favoring hyperdense bowel content rather than active hemorrhage. If there is strong suspicion for active hemorrhage, consider nuclear medicine tagged RBC GI bleeding scan for greater sensitivity/specificity. 4. Additional nonemergent findings detailed above.
[2024-01-29] MEDS: PIPERCILLIN/TAZO 3.375 GM in 0.9 % SODIUM CHLORIDE 50 ML IV (17:12)
--- NOTE | 2024-01-29 17:17 | P.HP_ITS ---
[facility] Disclaimer: The information contained in this section may have been updated after the patient was seen, as this information can be updated by other users. Social History (Updated 01/31/23 @ 15:03 by Miguel Seay APRN) Smoking Status: Never smoker alcohol intake: never current occupational status: employed Travel in the last 8 weeks: None Meds Home Medications and Allergies Home Medications ?Medication ?Instructions ?Recorded ?Confirmed ?Type amoxicillin 875 mg tablet 875 mg PO Q12H #20 tabs 01/31/23 Rx benzonatate 100 mg capsule 100 mg PO TIDP PRN Cough #30 caps 01/31/23 Rx buspirone 10 mg tablet 10 mg PO DAILY 01/31/23 01/31/23 History clonidine HCl 0.1 mg tablet 0.15 mg PO DAILY teeth grinding 01/31/23 01/31/23 History desvenlafaxine succinate 25 mg 25 mg PO DAILY 01/31/23 01/31/23 History tablet,extended release 24 hr hydrochlorothiazide 25 mg tablet 25 mg PO DAILY 01/31/23 01/31/23 History hydroxyzine HCl 25 mg tablet 25 mg PO BID PRN Anxiety 01/31/23 01/31/23 History losartan 50 mg tablet 50 mg PO DAILY 01/31/23 01/31/23 History metformin 500 mg tablet,extended 500 mg PO DAILY 01/31/23 01/31/23 History release 24 hr methylprednisolone 4 mg tablets in 4 mg PO DIRECTED #21 tabs 01/31/23 Rx a dose pack norethindrone acetate 1 mg-ethinyl 1 tab PO DAILY b/c 01/31/23 01/31/23 History estradiol 20 mcg tablet New Prescriptions to Start Prescriptions: Allergies Allergy/AdvReac Type Severity Reaction Status Date / Time bupropion [From Wellbutrin] Allergy Verified 01/31/23 14:34 ciprofloxacin [From Cipro] Allergy Verified 01/31/23 14:34 Exam Data for Last 24 hours Vital signs and Labs for Last 24 Hours: Temp Pulse Resp BP Pulse Ox O2 Del Method 98.4 F 93 H 18 145/93 H 98 Room Air 01/29/24 12:25 01/29/24 15:30 01/29/24 12:25 01/29/24 15:30 01/29/24 15:30 01/29/24 15:30 Laboratory Results - last 24 hr 01/29/24 12:35: WBC 20.5 H*, RBC 5.03, Hgb 15.3, Hct 43.4, MCV 86.2, MCH 30.4, MCHC 35.3, RDW 13.6, Plt Count 357, MPV 9.6, Neut % (Auto) 87.9 H, Lymph % (Auto) 8.8 L, [place] % (Auto) 2.8, Eos % (Auto) 0.2, Baso % (Auto) 0.3, Neut # (Au to) 18.0 H, Lymph # (Auto) 1.8, [place] # (Auto) 0.6, Eos # (Auto) 0.0, Baso # (Auto) 0.1, Total Counted 100, Neutrophils % (Manual) 88 H, Lymphocytes % (Manual) 10, Monocytes % (Manual) 2, Platelet Estimate Normal, RBC Morphology Normal, PT 10.3, INR 0.91, Sodium 138, Potassium 3.3 L, Chloride 100, Carbon Dioxide 28, Anion Gap 13.3, BUN 18 H, Creatinine 0.90, Estimated Creat Clear 85, Estimated GFR 66, Est GFR ( Amer) 80, Glucose 133 H, Calcium 9.6, Total Bilirubin 0.7, AST 43 H, ALT 34, Alkaline Phosphatase 146 H, Total Protein 8.2, Albumin 4.5, Globulin 3.7 H, Albumin/Globulin Ratio 1.2, Lipase 48, Procalcitonin 0.071, Serum HCG, Qual Negative, HIV 1&2 Antibody Rapid Nonreactive 01/29/24 12:39: Urine Color Yellow, Urine Appearance Clear, Urine pH 6.5, Ur Specific [place] >= 1.030, Urine Protein 2+ A, Urine Glucose (UA) Trace, Urine Ketones 1+, Urine Blood 2+ A, Urine Nitrate Positive, Urine Bilirubin 2+ A, Urine Urobilinogen 1.0, Ur Leukocyte Esterase Trace, Urine RBC None, Urine WBC None, Ur Squamous Epith Cells Occasional, Urine Bacteria None 01/29/24 14:29: Lactate 1.4 I & O for Last 24 hours: Intake & Output 01/26/24 01/27/24 01/28/24 01/29/24 23:59 23:59 23:59 23:59 Weight 72.575 kg
[2024-01-29] MEDS: 0.9 % SODIUM CHLORIDE 50 ML VIAL 40 ML IV (18:05)
[2024-01-29] MEDS: IOPAMIDOL-370 (76%);100ML BOTTLE 80 ML IV (18:05)
--- NOTE | 2024-01-29 18:06 | PC.NURSE ---
PT RETURNED FROM CT
--- NOTE | 2024-01-29 18:36 | PC.NURSE ---
called for bed
--- NOTE | 2024-01-29 19:08 | PC.NURSE ---
REPORT CALLED TO IZABEL ROJAS
[2024-01-29] MEDS: 0.9 % SODIUM CHLORIDE 1000ML 1,000 ML 999 ML IV (22:32)
[2024-01-29 22:46] LABS: POC Glucose,Bedside 103 (70-110)
--- NOTE | 2024-01-29 22:57 | P.HP_ITS ---
History of Present Illness *Admission Date: 01/29/24 *Reason for visit:: Colitis *History of present illness: Cynthia Shirley is a 53-year-old female with a medical history significant for hypertension, type 2 diabetes, anxiety/depression who presents with nausea/vomiting and abdominal pain with bright red blood per rectum. Patient states that she has been having nausea for about a week with dry heaving. However, abdominal pain started today especially in the left lower quadrant. She has also had multiple episodes of bright red blood per rectum today. No recent changes in diet, medications. She states she had bright red blood per rectum many years ago while she was working out a lot, but no diagnosed hemorrhoids. No fever/chills, chest pain, shortness of breath, recent travel. Initial vitals tachycardic up to 110. Workup in the ED significant for WBC 20.5, BUN 18. UA suggestive of blood. CT abdomen/pelvis revealed wall thickening of the distal transverse colon, splenic flexure, and descending colon concerning for colitis. Follow-up CTA abdomen/pelvis did not show active GI hemorrhage, but did show several diverticula with hyperdense content which may be more stool versus hemorrhage. Patient was given Zosyn in the ED. Case was discussed with ED provider and decision was made to admit patient for sepsis secondary to hemorrhagic colitis. [facility] Disclaimer: The information contained in this section may have been updated after the patient was seen, as this information can be updated by other users. Family History (Updated 01/29/24 @ 21:11 by Sarah Aceves RN) Other Family history of heart disease Social History (Updated 01/29/24 @ 21:11 by Sarah Aceves RN) Smoking Status: Never smoker alcohol intake: never current occupational status: employed Travel in the last 8 weeks: None Other Medical History Have you received the Flu Vaccine for this season: No Have you received the Pneumonia Vaccine: No Meds Home Medications and Allergies Home Medications ?Medication ?Instructions ?Recorded ?Confirmed ?Type buspirone 10 mg tablet 15 mg PO DAILY PRN mood 01/31/23 01/29/24 History desvenlafaxine succinate 25 mg 50 mg PO DAILY 01/31/23 01/29/24 History tablet,extended release 24 hr hydrochlorothiazide 25 mg tablet 12.5 mg PO DAILY 01/31/23 01/29/24 History losartan 50 mg tablet 50 mg PO DAILY 01/31/23 01/29/24 History metformin 500 mg tablet,extended 500 mg PO DAILY 01/31/23 01/29/24 History release 24 hr norethindrone acetate 1 mg-ethinyl 1 tab PO DAILY b/c 01/31/23 01/29/24 History estradiol 20 mcg tablet cyclobenzaprine 5 mg tablet 5 mg PO DAILY PRN . 01/29/24 01/29/24 History lamotrigine 200 mg tablet,extended 200 mg PO HS 01/29/24 01/29/24 History release 24 hr New Prescriptions to Start Prescriptions: Allergies Allergy/AdvReac Type Severity Reaction Status Date / Time bupropion [From Wellbutrin] Allergy Seizure Verified 01/29/24 21:05 ciprofloxacin [From Cipro] Allergy Other Verified 01/29/24 21:05 lisinopril Allergy facial Verified 01/29/24 21:05 swelling Exam Data for Last 24 hours Vital signs and Labs for Last 24 Hours: Temp Pulse Resp BP Pulse Ox O2 Del Method 98.2 F 80 18 133/77 98 Room Air 01/29/24 19:09 01/29/24 19:09 01/29/24 19:09 01/29/24 19:09 01/29/24 19:00 01/29/24 21:00 Laboratory Results - last 24 hr 01/29/24 12:35: WBC 20.5 H*, RBC 5.03, Hgb 15.3, Hct 43.4, MCV 86.2, MCH 30.4, MCHC 35.3, RDW 13.6, Plt Count 357, MPV 9.6, Neut % (Auto) 87.9 H, Lymph % (Auto) 8.8 L, [place] % (Auto) 2.8, Eos % (Auto) 0.2, Baso % (Auto) 0.3, Neut # (Auto) 18.0 H, Lymph # (Auto) 1.8, [place] # (Auto) 0.6, Eos # (Auto) 0.0, Baso # (Auto) 0.1, Total Counted 100, Neutrophils % (Manual) 88 H, Lymphocytes % (Manual) 10, Monocytes % (Manual) 2, Platelet Estimate Normal, RBC Morphology Normal, PT 10.3, INR 0.91, Sodium 138, Potassium 3.3 L, Chloride 100, Carbon Dioxide 28, Anion Gap 13.3, BUN 18 H, Creatinine 0.90, Estimated Creat Clear 85, Estimated GFR 66, Est GFR ( Amer) 80, Glucose 133 H, Calcium 9.6, Total Bilirubin 0.7, AST 43 H, ALT 34, Alkaline Phosphatase 146 H, Total Protein 8.2, Albumin 4.5, Globulin 3.7 H, Albumin/Globulin Ratio 1.2, Lipase 48, Procalcitonin 0.071, Serum HCG, Qual Negative, HIV 1&2 Antibody Rapid Nonreactive 01/29/24 12:39: Urine Color Yellow, Urine Appearance Clear, Urine pH 6.5, Ur Specific [place] >= 1.030, Urine Protein 2+ A, Urine Glucose (UA) Trace, Urine Ketones 1+, Urine Blood 2+ A, Urine Nitrate Positive, Urine Bilirubin 2+ A, Urine Urobilinogen 1.0, Ur Leukocyte Esterase Trace, Urine RBC None, Urine WBC None, Ur Squamous Epith Cells Occasional, Urine Bacteria None 01/29/24 14:29: Lactate 1.4 01/29/24 22:37: POC Glucose 103 I & O for Last 24 hours: Intake & Output 01/26/24 01/27/24 01/28/24 01/29/24 23:59 23:59 23:59 23:59 Weight 72.575 kg Constitutional Constitutional: no acute distress *Routine HEENT Exam Head: Present normocephalic Eye: Present EOMI and PERRL ENT: Present mucous membranes moist *Routine Neck Exam Neck: Present supple; Absent lymphadenopathy *Routine Respiratory Exam Respiratory: Present CTA bilaterally *Routine Cardiovascular Exam Cardiovascular: Present RRR *Routine Abdominal Exam Abdominal: Present soft, normoactive bowel sounds and tenderness Comments: Left lower quadrant abdominal tenderness to palpation. No peritoneal signs. *Routine Rectal Exam Rectal:: deferred *Routine Genitalia Exam Genitalia:: deferred *Routine Extremities Exam Extremities: Absent cyanosis, clubbing or edema *Routine Skin Exam Skin: Present warm; Absent rash *Routine Neurological Exam Neurological: Present alert and oriented X3 Assessment and Plan *Assessment and plan (1) Acute hemorrhagic colitis: Status: Acute Category: Medical Code(s): K52.9 - Noninfective gastroenteritis and colitis, unspecified (2) Sepsis without septic shock: Status: Acute Category: Medical Code(s): A41.9 - Sepsis, unspecified organism Plan Cynthia Shirley is a 53-year-old female with a medical history significant for hypertension, type 2 diabetes, anxiety/depression who presents with nausea/vomiting and abdominal pain with bright red blood per rectum. Patient states that she has been having nausea for about a week with dry heaving. However, abdominal pain started today especially in the left lower quadrant. She has also had multiple episodes of bright red blood per rectum today. No recent changes in diet, medications. She states she had bright red blood per rectum many years ago while she was working out a lot, but no diagnosed hemorrhoids. No fever/chills, chest pain, shortness of breath, recent travel. Initial vitals tachycardic up to 110. Workup in the ED significant for WBC 20.5, BUN 18. UA suggestive of blood. CT abdomen/pelvis revealed wall thickening of the distal transverse colon, splenic flexure, and descending colon concerning for colitis. Follow-up CTA abdomen/pelvis did not show active GI hemorrhage, but did show several diverticula with hyperdense content which may be more stool versus hemorrhage. Patient was given Zosyn in the ED. Case was discussed with ED provider and decision was made to admit patient for sepsis secondary to hemorrhagic colitis. #Hemorrhagic colitis #Bright red blood per rectum #Sepsis ? Initially tachycardic up to 110, WBC 20.5. ? CT abdomen/pelvis suggestive of colitis in the transverse colon, splenic flexure, descending colon. ? CTA abdomen/pelvis did not show active hemorrhage. ? No known history of inflammatory bowel disease. ? GI consulted, recommended flexible sigmoidoscopy versus colonoscopy tomorrow. N.p.o. at midnight. ? Ordered 2 L sepsis bolus. ? IV Zosyn day 03/24. ? Follow-up CRP, ESR. ? Follow-up stool PCR. ? Morphine as needed for pain control. #Type 2 diabetes ? Follow-up morning A1c. ? LDSSI, ACHS glucose checks. #Depression ? Resumed home Lamictal, desvenlafaxine #Hypertension ? Resume home medications once appropriate for BP Full code DVT prophylaxis: SCDs
[2024-01-29] MEDS: LAMOTRIGINE 200 MG 200 EACH PO (23:35)
[2024-01-30] VITALS (16 sets, daily range): BP systolic 126–156; BP diastolic 73–91; PULSE 82–112; RESP 16–18; TEMP 36.6–37.1; O2SAT 92–100; BMI 27.8
[2024-01-30] MEDS: MORPHINE 2MG/ML SYRINGE 1 MG IV (01:04)
[2024-01-30 02:06] LABS: Adenovirus F 40/41, stool Not Detected (NotDetected); Astrovirus Not Detected (NotDetected); Campylobacter Not Detected (NotDetected); Clostridium Difficile A/B, PCR Not Detected (NotDetected); Cryptosporidium Not Detected (NotDetected); Cyclospora Cayetanesis Not Detected (NotDetected); Entamoeba histolytica Not Detected (NotDetected); Enteroaggregative E coli Not Detected (NotDetected); Enteropathogenic E coli Not Detected (NotDetected); Enterotoxigenic E coli Not Detected (NotDetected); Giardia lamblia Not Detected (NotDetected); Norovirus Not Detected (NotDetected); Plesimonas Shigalloides, PCR Not Detected (NotDetected); Rotavirus A Not Detected (NotDetected); Salmonella, PCR Not Detected (NotDetected); Sapovirus Not Detected (NotDetected); Shiga-like toxin E coli Not Detected (NotDetected); Shigella Enterovasive E coli Not Detected (NotDetected); Vibrio Cholerae Not Detected (NotDetected); Vibrio, PCR Not Detected (NotDetected); Yersinia Entercolitica, PCR Not Detected (NotDetected)
[2024-01-30 02:18] LABS: Occult Blood,Stool Positive (Negative)
--- NOTE | 2024-01-30 04:26 | PC.NURSE ---
53 yo female pt admitted with colitis and sepsis. Pt is A/O X 4 and is ambulatory to . She has reported pain to left abdominal area, radiating around to back and was medicated with Morphine, see MAR. After getting pain managed, pt was able to rest for a couple of hours. She has been NPO since AR. Prior to NPO status, she tolerated clear liquids without any N/V. No BM this shift. FSBS earlier in shift was 103.
[2024-01-30] MEDS: ACETAMINOPHEN 325MG TAB 650 MG PO ×2 (06:15→19:27)
[2024-01-30 06:55] LABS: Basophils # 0.1 K/mm3 (0-0.2); Basophils % 0.5 % (0.1-2.0); Eosinophils # 0.2 K/mm3 (0.0-0.4); Eosinophils % 1.2 % (0.1-12.0); Hematocrit 36.8 % (37.0-47.0); Lymphocytes # 2.8 K/mm3 (0.7-4.5); Lymphocytes % 16.5 % (10-50); Mean Corpuscular HGB Conc 35.7 g/dL (31.8-35.4); Mean Corpuscular Hemoglobin 30.3 pg (27.0-31.2); Mean Corpuscular Volume 84.9 fl (81-99); Mean Platelet Volume 9.3 fl (7.4-10.4); Monocytes # 0.7 K/mm3 (0.1-1.0); Monocytes % 4.2 % (1.7-9.3); Neutrophils # 13.1 K/mm3 (1.8-7.8); Neutrophils % 77.6 % (37.0-80.0); Platelet Count 253 K/mm3 (142-424); Red Blood Count 4.34 M/mm3 (4.20-5.40); Red Cell Distribution Width 13.9 % (11.5-17.5); White Blood Count 16.9 K/mm3 (4.8-10.8)
[2024-01-30 07:01] LABS: Alanine Aminotransferase 22 U/L (12-78); Albumin Level 3.6 g/dl (3.5-5.0); Albumin/Globulin Ratio 1.2 (1.1-1.8); Alkaline Phosphatase 101 U/L (38-126); Aspartate Amino Transferase 29 U/L (14-36); Bilirubin,Total 0.8 mg/dl (0.2-1.3); Blood Urea Nitrogen 10 mg/dl (7-17); Calcium 8.4 mg/dl (8.4-10.2); Carbon Dioxide 26 mmol/L (22.0-30.0); Chloride 102 mmol/L (98-107); Creatinine Clearance Estimated 107 mL/min (50-200); Estimated Glomerular Filt Rate 88 ml/min (>60); GFR (African American) 107 ML/MIN (>60); Globulin 2.9 g/dL (1.3-3.2); Glucose 98 mg/dl (74-100); MANUAL DIFFERENTIAL MANUAL DIFFERENTIAL (MANUAL DIFF); Magnesium 1.6 mg/dl (1.6-2.3); Sodium 137 mmol/L (136-145); Total Protein,Serum 6.5 g/dl (6.3-8.2)
[2024-01-30] MEDS: ONDANSETRON 4MG/2ML VIAL 4 MG IV (07:17)
--- NOTE | 2024-01-30 07:49 | HMH.PHAINT1 ---
Pharmacy Intervention Comments: HOME MEDICATIONS VERIFIED VIA OUTPATIENT PHARMACY AND PATIENT INTERVIEW
[2024-01-30 08:13] LABS: Erythrocyte Sedimentation Rate 19 mm/hr (0-30)
[2024-01-30 09:10] LABS: Hemoglobin A1C 5.2 % (4.0-6.0)
[2024-01-30] MEDS: SODIUM PHOS/BIPHOSPHATE FLEET 133ML ENEMA 266 ML RC (09:41)
[2024-01-30 10:15] LABS: Eosinophils % 1 % (0-3); Lymphocytes % 22 % (10-50); Monocytes % 1 % (2-9); Neutrophils % 76 % (42-76); Platelet Estimate Normal; RBC Morphology Normal; Total Cells Counted 100
[2024-01-30 10:22] LABS: HCV Ab Non Reactive (Non Reactive)
[2024-01-30] MEDS: PIPERCILLIN/TAZO 3.375 GM in 0.9 % SODIUM CHLORIDE 50 ML IV ×2 (11:45→17:57)
[2024-01-30] MEDS: POTASSIUM CHLORIDE 20MEQ TAB 40 MEQ PO ×3 (11:45→19:27)
--- NOTE | 2024-01-30 12:17 | P.PNANES_ITS ---
[facility] Disclaimer: The information contained in this section may have been updated after the patient was seen, as this information can be updated by other users. Family History (Updated 01/29/24 @ 21:11 by Sarah Aceves RN) Other Family history of heart disease Social History (Updated 01/29/24 @ 21:11 by Sarah Aceves RN) Smoking Status: Never smoker alcohol intake: never substance use type: denies use current occupational status: employed Travel in the last 8 weeks: None [facility] [place] Anesthesia Checklist Patient Identification Patient Identification: Arm Band and Verbal (Name & ) Structural Data Admitted From: Inpatient (-[id number]) Planned Operative Procedure/s: Colonoscopy Consent for Planned Operative Procedure(s) Verified: Yes Verified Documents: Surgical Consent and History and Physical NPO Status Verified Time NPO: 00:00 Chart Verification Results Verified: CBC, BMP and HCG Additional verifications Fingerstick Blood Glucose: 88 Patient : No Anesthesia Reactions: No Previous Colonoscopy: Yes Cardiovascular Assessment Heart Sounds: S1 & S2 Pulse Rhythm: Irregular Peripheral Edema: No Airway Assessment Mallampati Score:: Class II C-Spine Mobility Assessed: Yes (FROM demonstrated) TMJ Mobility Assessed: Yes Dentition: Good Dentition (Nothing loose per pt.) Neurological Assessment Level of Consciousness: Awake, Alert, Appropriate and Follows Commands Hx Seizures: Yes Numbness or tingling in extremities: No Anesthesia Plan Anesthesia Risk discussed: Yes Anesthesia Plan: Verified ASA Class: III Anesthesia Type: MAC
--- NOTE | 2024-01-30 12:43 | HMH.PROCNOTE ---
[facility] Procedure Note Date: 01/30/24 Time: 12:43 Procedure Note:: Colonoscopy Procedure Report: Colonoscopy with cold biopsies Endoscopist: Wade Maharaj II, MD Referring physician: Rain Watts MD Date of Procedure: January 30, 2024 Equipment: Olympus 190 variable stiffness pediatric colonoscope Sedation: MAC sedation Indication: Mrs. Shirley is a 53-year-old female who is here for admission after having hematochezia and bright red blood per rectum. The patient did present with nausea, vomiting, crampy abdominal pain and bright red blood per rectum. This began yesterday morning with cramps and blood. Now she has had further rectal bleeding since her admission. She has had multiple episodes of blood yesterday and today. She did have a colonoscopy several years ago which was normal. On admission her white blood cell count was 20,000. On her CAT scan there was thickening of the splenic flexure and descending colon. Her PCR panel was negative for microbial pathogens. She was given Zosyn in the ED. Her hemoglobin and hematocrit declined from 15.3 and 43.4 yesterday to 13.0 and 36.8 today. She has been hydrated. She reports no dehydration but her BUN yesterday was 18 and today is 10. She reports no foul tasting food or contacts with persons with diarrheal illness. She has had some gassiness and bloating. Her mother had diverticulitis and her brother had colon cancer in his 40s. She reports no family history of IBD. Procedure: Prior to the procedure, a history and physical exam was performed, and patient's medications and allergies were reviewed. The risks, benefits and alternatives of the sedation and procedure were discussed with the patient. All questions were answered and informed consent was obtained. The patient was brought to the procedure room. Patient identification and proposed procedure were verified by the physician and the nurse. The patient was placed in a left lateral decubitus position and the scope was passed under direct vision. Throughout the procedure, the patient's blood pressure, pulse, and oxygen saturations were monitored continuously. The colonoscopy was accomplished without difficulty. The patient tolerated the procedure well. Findings: On digital rectal examination there was normal rectal tone. There were no external hemorrhoids. The scope was then introduced through the anal canal into the rectum and advanced to the mid ascending colon. The scope was not advanced to the cecum because of brown solid stool in the very proximal colon. The scope was then withdrawn. The ascending and most of the transverse colon had normal colonic mucosa with normal vascular pattern. Near the splenic flexure there was abrupt onset of linear mucosal ulceration, edematous mucosa, erythema, loss of haustral markings. These linear ulcerations were along the antimesenteric colonic wall ( stripe sign ) and this extended to approximately 35 to 40 cm from the anal verge and then the mucosa distally in the sigmoid and rectum was normal with normal vascular pattern. Multiple biopsies were taken from the descending colon where there was this moderate to marked regional colitis which was very typical of ischemic colitis. This is in the watershed region of the colon. Impression: 1. Regional colitis in the watershed region of colon (distal transverse and descending colon) with stripe sign strongly indicative of ischemic colitis Plan: These colonoscopic findings are highly characteristic of ischemic colitis. Ischemic colitis is characterized by a sudden and temporary reduction in blood flow to the colon. The insult to the colon often occurs in the watershed region of the colon that has a limited supply of collateral arterial blood vessels that supply this region. The left colon is involved in 75% of cases of ischemic colitis. The cause is generally a sudden and temporary reduction in blood flow to the colon which is insufficient to meet the metabolic commands of that region of the colon. Certainly dehydration can be responsible for this. We also feel that high gas pressures within the colon itself can contribute which is why persons with constipation irritable bowel syndrome have a nearly 3 times greater risk of ischemic colitis than the general population. The majority of patients will have improvement in their symptoms within 24 to 48 hours and complete clinical recovery within 1 to 2 weeks as the lining of the colon (colonic mucosa) regenerates and heals. Treatment is supportive which may include dietary measures, antibiotics, probiotics and antispasmodics. I will follow-up the biopsies.
[2024-01-30] MEDS: DICYCLOMINE 10MG CAPSULE 10 MG PO ×2 (13:22→20:42)
[2024-01-30] MEDS: MAGNESIUM SULFATE IN WATER 2 GM/50 ML PIGGYBACK IV ×2 (13:24→14:24)
--- NOTE | 2024-01-30 16:02 | PC.NURSE ---
Aox 4, up ad edgar, 's on RA, 20g R AC SL, on electrolyte protocol, colonoscopy today see report, on clears.
[2024-01-30] MEDS: MORPHINE 2MG/ML SYRINGE 2 MG IV (17:03)
[2024-01-30] MEDS: lamoTRIgine 100MG TABLET 200 MG PO (20:42)
[2024-01-30] MEDS: 0.9 % SODIUM CHLORIDE 1000ML 1,000 ML 125 ML IV (20:42)
[2024-01-30] MEDS: TEMAZEPAM 15MG CAPSULE 15 MG PO (20:47)
--- NOTE | 2024-01-30 21:47 | EXP.PN ---
Subjective *Date: 01/30/24 *Time: 21:47 Exam Data for Last 24 hours Vital signs and Labs for Last 24 Hours: Temp Pulse Resp BP Pulse Ox O2 Del Method O2 Flow Rate 98.6 F 99 H 18 132/87 100 Room Air 4 01/30/24 17:00 01/30/24 17:00 01/30/24 17:00 01/30/24 17:00 01/30/24 17:00 01/30/24 17:36 01/30/24 12:19 Laboratory Results - last 24 hr 01/29/24 12:35: Hepatitis C Antibody Non reactive 01/29/24 22:37: POC Glucose 103 01/30/24 01:58: Stool Occult Blood Positive A, Stl Aeromonas (PCR) Not detected, Stl C. cayetanensis PCR Not detected, Stool Rotavirus (PCR) Not detected, Stl Adenov F 40/41 PCR Not detected, Stool Astrovirus (PCR) Not detected, Stool Campylobacter PCR Not detected, Stl C.difficile Tox PCR Not detected, Stool Cryptosporidium PCR Not detected, Stl E.coli Shiga Tox PCR Not detected, Stool E coli O157 PCR Not detected, Stl Enterotoxigenic E PCR Not detected, Stool EPEC (PCR) Not detected, Stool EAEC (PCR) Not detected, Stl E. histolytica PCR Not detected, Stool Giardia Lamblia PCR Not detected, Stool Salmonella PCR Not detected, Stool Sapovirus (PCR) Not detected, Stl P. shigelloides PCR Not detected, Stl Shigella/EIEC PCR Not detected, St Y.enterocolitica PCR Not detected, Stool Vibrio (PCR) Not detected, Stl Vibrio cholerae PCR Not detected, Stl Norovirus GI/GII PCR Not detected 01/30/24 06:19: WBC 16.9 H, RBC 4.34, Hgb 13.0 D, Hct 36.8 L, MCV 84.9, MCH 30.3, MCHC 35.7 H, RDW 13.9, Plt Count 253 D, MPV 9.3, Neut % (Auto) 77.6, Lymph % (Auto) 16.5, [place] % (Auto) 4.2, Eos % (Auto) 1.2, Baso % (Auto) 0.5, Neut # (Auto) 13.1 H, Lymph # (Auto) 2.8, [place] # (Auto) 0.7, Eos # (Auto) 0.2, Baso # (Auto) 0.1, Total Counted 100, Neutrophils % (Manual) 76, Lymphocytes % (Manual) 22, Monocytes % (Manual) 1 L, Eosinophils % (Manual) 1, Platelet Estimate Normal, RBC Morphology Normal, ESR 19, Sodium 137, Potassium 3.0 L, Chloride 102, Carbon Dioxide 26, Anion Gap 12.0, BUN 10 D, Creatinine 0.70 D, Estimated Creat Clear 107, Estimated GFR 88, Est GFR ( Amer) 107 D, Glucose 98 D, Hemoglobin A1c 5.2, Calcium 8.4, Magnesium 1.6, Total Bilirubin 0.8, AST 29 D, ALT 22 D, Alkaline Phosphatase 101, C-Reactive Protein 69.0 H, Total Protein 6.5, Albumin 3.6 D, Globulin 2.9, Albumin/Globulin Ratio 1.2 I & O for Last 24 hours: Intake & Output 01/27/24 01/28/24 01/29/24 01/30/24 23:59 23:59 23:59 23:59 Intake Total 2180 / 2180 Balance 2180 / 2180 Weight 72.575 kg 71.259 kg Microbiology Reports for the Last 24 Hours: Microbiology 01/29/24 14:50 Blood Blood Culture - Preliminary NO GROWTH AFTER 24 HOURS 01/29/24 14:50 Blood Blood Culture - Preliminary NO GROWTH AFTER 24 HOURS Constitutional Constitutional: no acute distress *Routine HEENT Exam Head: Present normocephalic Eye: Present EOMI and PERRL ENT: Present mucous membranes moist *Routine Neck Exam Neck: Present supple; Absent lymphadenopathy *Routine Respiratory Exam Respiratory: Present CTA bilaterally *Routine Cardiovascular Exam Cardiovascular: Present RRR *Routine Abdominal Exam Abdominal: Present soft, normoactive bowel sounds and tenderness *Routine Extremities Exam Extremities: Absent cyanosis, clubbing or edema *Routine Skin Exam Skin: Present warm; Absent rash *Routine Neurological Exam Neurological: Present alert and oriented X3 Assessment and Plan *Assessment and plan (1) Acute hemorrhagic colitis: Status: Acute Category: Medical Code(s): K52.9 - Noninfective gastroenteritis and colitis, unspecified (2) Sepsis without septic shock: Status: Acute Category: Medical Code(s): A41.9 - Sepsis, unspecified organism Plan Cynthia Shirley is a 53-year-old female with a medical history significant for hypertension, type 2 diabetes, anxiety/depression who presents with nausea/vomiting and abdominal pain with bright red blood per rectum. Patient states that she has been having nausea for about a week with dry heaving. However, abdominal pain started today especially in the left lower quadrant. She has also had multiple episodes of bright red blood per rectum today. No recent changes in diet, medications. She states she had bright red blood per rectum many years ago while she was working out a lot, but no diagnosed hemorrhoids. No fever/chills, chest pain, shortness of breath, recent travel. Initial vitals tachycardic up to 110. Workup in the ED significant for WBC 20.5, BUN 18. UA suggestive of blood. CT abdomen/pelvis revealed wall thickening of the distal transverse colon, splenic flexure, and descending colon concerning for colitis. Follow-up CTA abdomen/pelvis did not show active GI hemorrhage, but did show several diverticula with hyperdense content which may be more stool versus hemorrhage. Patient was given Zosyn in the ED. Case was discussed with ED provider and decision was made to admit patient for sepsis secondary to hemorrhagic colitis. #Hemorrhagic ischemic colitis #Bright red blood per rectum #Sepsis ? Initially tachycardic up to 110, WBC 20.5. ? CT abdomen/pelvis suggestive of colitis in the transverse colon, splenic flexure, descending colon. ? CTA abdomen/pelvis did not show active hemorrhage. ? No known history of inflammatory bowel disease. ? GI consulted, s/p colonoscopy which revealed ischemic colitis. Recommended generous fluid rehydration. - Patient feels better today, continue to have some abdominal pain. Tolerating CLD. ? IV Zosyn day 2/5. ? Advance to regular diet tomorrow. #Type 2 diabetes ? A1c 5.2. ? Discontinued LDSSI, ACHS glucose checks. #Depression ? Resumed home Lamictal, desvenlafaxine #Hypertension ? Resume home medications once appropriate for BP Full code DVT prophylaxis: SCDs
--- NOTE | 2024-01-30 22:09 | PC.NURSE ---
patient refused SCD's but ambulates.
[2024-01-31] VITALS: BP 114/75; PULSE 100; RESP 17; TEMP 36.8; O2SAT 97
[2024-01-31] MEDS: PIPERCILLIN/TAZO 3.375 GM in 0.9 % SODIUM CHLORIDE 50 ML IV (02:34)
[2024-01-31] MEDS: 0.9 % SODIUM CHLORIDE 1000ML 1,000 ML 125 ML IV (03:16)
[2024-01-31] MEDS: CYCLOBENZAPRINE 10MG TABLET 5 MG PO (03:44)
[2024-01-31 04:00] VITALS: BP 117/80; PULSE 105; RESP 16; TEMP 36.8; O2SAT 99; BMI 27.7
[2024-01-31 08:00] VITALS: BP 117/73; PULSE 107; RESP 17; TEMP 36.9; O2SAT 99
--- NOTE | 2024-01-31 08:09 | P.PN_ITS ---
Subjective *Date: 01/31/24 *Time: 08:09 Interval history: No further bright red blood per rectum or hematochezia. No further cramps. Still some left-sided soreness. Patient tolerated liquids and advancing to a regular diet. No nausea or vomiting. Exam Data for Last 24 hours Vital signs and Labs for Last 24 Hours: Temp Pulse Resp BP Pulse Ox O2 Del Method O2 Flow Rate 98.3 F 105 H 16 117/80 99 Room Air 4 01/31/24 04:00 01/31/24 04:00 01/31/24 04:00 01/31/24 04:00 01/31/24 04:00 01/31/24 07:00 01/30/24 12:19 Laboratory Results - last 24 hr 01/29/24 12:35: Hepatitis C Antibody Non reactive 01/30/24 06:19: Total Counted 100, Neutrophils % (Manual) 76, Lymphocytes % (Manual) 22, Monocytes % (Manual) 1 L, Eosinophils % (Manual) 1, Platelet Estimate Normal, RBC Morphology Normal, ESR 19, Hemoglobin A1c 5.2 I & O for Last 24 hours: Intake & Output 01/28/24 01/29/24 01/30/24 01/31/24 23:59 23:59 23:59 23:59 Intake Total 2680 / 2750 878 / 878 Output Total 0 / 0 Balance 2680 / 2750 878 / 878 Weight 160 lb 157 lb 1.6 oz 156 lb 8.451 oz Microbiology Reports for the Last 24 Hours: Microbiology 01/29/24 14:50 Blood Blood Culture - Preliminary NO GROWTH AFTER 24 HOURS 01/29/24 14:50 Blood Blood Culture - Preliminary NO GROWTH AFTER 24 HOURS *Routine Abdominal Exam Abdominal: Present tenderness Comments: Left lower quadrant abdominal tenderness, no rebound or guarding, no masses Assessment and Plan *Assessment and plan (1) Acute ischemic colitis: Status: Acute Category: Medical Code(s): K55.039 - Acute (reversible) ischemia of large intestine, extent unspecified Plan 1. Acute ischemic colitis. Ischemic colitis is characterized by a sudden and temporary reduction in blood flow to the colon. The insult to the colon often occurs in the watershed region of the colon that has a limited supply of collateral arterial blood vessels that supply this region. The left colon is involved in 75% of cases of ischemic colitis. The cause is generally a sudden and temporary reduction in blood flow to the colon which is insufficient to meet the metabolic commands of that region of the colon. Certainly dehydration can be responsible for this. The patient does admit to having some mild dehydration prior to the onset. She is on hydrochlorothiazide and was also hypokalemic. I did stop the HCTZ. The majority of patients will have improvement in their symptoms within 24 to 48 hours and complete clinical recovery within 1 to 2 weeks as the lining of the colon (colonic mucosa) regenerates and heals. T reatment is supportive which may include dietary measures, antibiotics, probiotics and antispasmodics. There is no role for antibiotics at this point. I would advance a diet and if tolerated, patient can be discharged home.
[2024-01-31] MEDS: DICYCLOMINE 10MG CAPSULE 10 MG PO (08:43)
[2024-01-31] MEDS: LACTOBACILLUS PROBIOTIC COMB CAPSULE 1 CAP PO (08:43)
[2024-01-31] MEDS: IRBESARTAN 75MG TABLET 75 MG PO (08:43)
[2024-01-31] MEDS: METFORMIN 500MG TABLET 500 MG PO (08:43)
[2024-01-31 08:52] LABS: Basophils # 0.1 K/mm3 (0-0.2); Basophils % 0.4 % (0.1-2.0); Eosinophils # 0.4 K/mm3 (0.0-0.4); Eosinophils % 2.6 % (0.1-12.0); Hematocrit 33.3 % (37.0-47.0); Hemoglobin 11.6 g/dL (12.2-16.2); Lymphocytes # 2.8 K/mm3 (0.7-4.5); Lymphocytes % 20.3 % (10-50); Mean Corpuscular HGB Conc 34.7 g/dL (31.8-35.4); Mean Corpuscular Hemoglobin 30.3 pg (27.0-31.2); Mean Corpuscular Volume 87.3 fl (81-99); Mean Platelet Volume 9.4 fl (7.4-10.4); Monocytes # 0.5 K/mm3 (0.1-1.0); Monocytes % 3.5 % (1.7-9.3); Neutrophils # 10.2 K/mm3 (1.8-7.8); Neutrophils % 73.3 % (37.0-80.0); Platelet Count 226 K/mm3 (142-424); Red Blood Count 3.82 M/mm3 (4.20-5.40); Red Cell Distribution Width 13.7 % (11.5-17.5); White Blood Count 13.9 K/mm3 (4.8-10.8)
[2024-01-31 09:02] LABS: Alanine Aminotransferase 23 U/L (12-78); Albumin Level 3.2 g/dl (3.5-5.0); Albumin/Globulin Ratio 1.2 (1.1-1.8); Alkaline Phosphatase 77 U/L (38-126); Anion Gap 8.7 mEq/L (5-15); Aspartate Amino Transferase 26 U/L (14-36); Bilirubin,Total 0.5 mg/dl (0.2-1.3); Blood Urea Nitrogen 5 mg/dl (7-17); Carbon Dioxide 26 mmol/L (22.0-30.0); Chloride 109 mmol/L (98-107); Creatinine Clearance Estimated 107 mL/min (50-200); Estimated Glomerular Filt Rate 88 ml/min (>60); GFR (African American) 107 ML/MIN (>60); Globulin 2.6 g/dL (1.3-3.2); Glucose 104 mg/dl (74-100); Potassium 3.7 mmoL/L (3.5-5.1); Sodium 140 mmol/L (136-145); Total Protein,Serum 5.8 g/dl (6.3-8.2)
[2024-01-31 09:54] LABS: POC Glucose,Bedside 88 (70-110)
--- NOTE | 2024-01-31 11:48 | EXP.DC.SUM ---
General Admission date:: 01/29/24 HPI HPI HPI: Cynthia Shirley is a 53-year-old female with a medical history significant for hypertension, type 2 diabetes, anxiety/depression who presents with nausea/vomiting and abdominal pain with bright red blood per rectum. Patient states that she has been having nausea for about a week with dry heaving. However, abdominal pain started today especially in the left lower quadrant. She has also had multiple episodes of bright red blood per rectum today. No recent changes in diet, medications. She states she had bright red blood per rectum many years ago while she was working out a lot, but no diagnosed hemorrhoids. No fever/chills, chest pain, shortness of breath, recent travel. Initial vitals tachycardic up to 110. Workup in the ED significant for WBC 20.5, BUN 18. UA suggestive of blood. CT abdomen/pelvis revealed wall thickening of the distal transverse colon, splenic flexure, and descending colon concerning for colitis. Follow-up CTA abdomen/pelvis did not show active GI hemorrhage, but did show several diverticula with hyperdense content which may be more stool versus hemorrhage. Patient was given Zosyn in the ED. Case was discussed with ED provider and decision was made to admit patient for sepsis secondary to hemorrhagic colitis. Hospital Course Hospital Course Hospital Course: Cynthia Shirley is a 53-year-old female with a medical history significant for hypertension, type 2 diabetes, anxiety/depression who presents with nausea/vomiting and abdominal pain with bright red blood per rectum. Patient states that she has been having nausea for about a week with dry heaving. However, abdominal pain started today especially in the left lower quadrant. She has also had multiple episodes of bright red blood per rectum today. No recent changes in diet, medications. She states she had bright red blood per rectum many years ago while she was working out a lot, but no diagnosed hemorrhoids. No fever/chills, chest pain, shortness of breath, recent travel. Initial vitals tachycardic up to 110. Workup in the ED significant for WBC 20.5, BUN 18. UA suggestive of blood. CT abdomen/pelvis revealed wall thickening of the distal transverse colon, splenic flexure, and descending colon concerning for colitis. Follow-up CTA abdomen/pelvis did not show active GI hemorrhage, but did show several diverticula with hyperdense content which may be more stool versus hemorrhage. Patient was given Zosyn in the ED. Case was discussed with ED provider and decision was made to admit patient for sepsis secondary to hemorrhagic colitis. #Hemorrhagic ischemic colitis #Bright red blood per rectum ? Initially tachycardic up to 110, WBC 20.5 with evidence of colitis on CT A/P. ? CT abdomen/pelvis suggestive of colitis in the transverse colon, splenic flexure, descending colon. ? CTA abdomen/pelvis did not show active hemorrhage. ? No known history of inflammatory bowel disease. - Improved with bowel rest, IV fluids, and slowing advancing diet to low residue. Zosyn also given but discontinued per GI recommendations. ? GI consulted, s/p colonoscopy which revealed ischemic colitis. Recommended generous fluid rehydration without further need for antibiotics. - Patient feels better today, abdominal pain improved, no further episodes of bleeding. Hgb 11.6. ? Medically stable for discharge. Advised to drink free water generously and advance diet as tolerated. #Type 2 diabetes ? A1c 5.2. ? Continue metformin. #Depression ? Resumed home Lamictal, desvenlafaxine #Hypertension ? HCTZ held due to stable pressures and to reduce risk of dehydration in the setting of ischemic colitis. Exam Data for Last 24 hours Vital signs and Labs for Last 24 Hours: Temp Pulse Resp BP Pulse Ox O2 Del Method O2 Flow Rate 98.4 F 107 H 17 117/73 99 Room Air 4 01/31/24 08:00 01/31/24 08:00 01/31/24 08:00 01/31/24 08:00 01/31/24 08:00 01/31/24 09:37 01/30/24 12:19 Laboratory Results - last 24 hr 01/30/24 12:19: POC Glucose 88 01/31/24 08:42: WBC 13.9 H, RBC 3.82 L, Hgb 11.6 L, Hct 33.3 L, MCV 87.3, MCH 30.3, MCHC 34.7, RDW 13.7, Plt Count 226, MPV 9.4, Neut % (Auto) 73.3, Lymph % (Auto) 20.3, [place] % (Auto) 3.5, Eos % (Auto) 2.6, Baso % (Auto) 0.4, Neut # (Auto) 10.2 H, Lymph # (Auto) 2.8, [place] # (Auto) 0.5, Eos # (Auto) 0.4, Baso # (Auto) 0.1, Sodium 140, Potassium 3.7 D, Chloride 109 H, Carbon Dioxide 26, Anion Gap 8.7, BUN 5 L D, Creatinine 0.70, Estimated Creat Clear 107, Estimated GFR 88, Est GFR ( Amer) 107, Glucose 104 H, Calcium 8.0 L, Total Bilirubin 0.5, AST 26, ALT 23, Alkaline Phosphatase 77, Total Protein 5.8 L, Albumin 3.2 L D, Globulin 2.6, Albumin/Globulin Ratio 1.2 I & O for Last 24 hours: Intake & Output 01/28/24 01/29/24 01/30/24 01/31/24 23:59 23:59 23:59 23:59 Intake Total 2680 / 2750 1118 / 1118 Output Total 0 / 0 Balance 2680 / 2750 1118 / 1118 Weight 72.575 kg 71.259 kg 71 kg Microbiology Reports for the Last 24 Hours: Microbiology 01/29/24 14:50 Blood Blood Culture - Preliminary NO GROWTH AFTER 24 HOURS 01/29/24 14:50 Blood Blood Culture - Preliminary NO GROWTH AFTER 24 HOURS Results Data Completed and Pending Labs on day of discharge: Labs from last 24 hours 01/31/24 01/30/24 08:42 12:19 WBC 13.9 H RBC 3.82 L Hgb 11.6 L Hct 33.3 L MCV 87.3 MCH 30.3 MCHC 34.7 RDW 13.7 Plt Count 226 MPV 9.4 Neut % (Auto) 73.3 Lymph % (Auto) 20.3 [place] % (Auto) 3.5 Eos % (Auto) 2.6 Baso % (Auto) 0.4 Neut # (Auto) 10.2 H Lymph # (Auto) 2.8 [place] # (Auto) 0.5 Eos # (Auto) 0.4 Baso # (Auto) 0.1 Sodium 140 Potassium 3.7 D Chloride 109 H Carbon Dioxide 26 Anion Gap 8.7 BUN 5 L D Creatinine 0.70 Estimated Creat Clear 107 Estimated GFR 88 Est GFR ( Amer) 107 Glucose 104 H POC Glucose 88 Calcium 8.0 L Total Bilirubin 0.5 AST 26 ALT 23 Alkaline Phosphatase 77 Total Protein 5.8 L Albumin 3.2 L D Globulin 2.6 Albumin/Globulin Ratio 1.2 Preliminary micro results at discharge 01/29/24 14:50 Blood Culture - Preliminary Blood NO GROWTH AFTER 24 HOURS 01/29/24 14:50 Blood Culture - Preliminary Blood NO GROWTH AFTER 24 HOURS DS: Diagnosis Discharge Diagnosis (1) Acute ischemic colitis: Status: Acute Code(s): K55.039 - Acute (reversible) ischemia of large intestine, extent unspecified (2) Diabetes: Status: Acute Code(s): E11.9 - Type 2 diabetes mellitus without complications (3) Hypertension: Status: Acute Code(s): I10 - Essential (primary) hypertension (4) Depression: Status: Acute Code(s): F32.A - Depression, unspecified Meds Home Medications and Allergies Home Medications ?Medication ?Instructions ?Recorded ?Confirmed ?Type desvenlafaxine succinate 25 mg 50 mg PO DAILY 01/31/23 01/30/24 History tablet,extended release 24 hr hydrochlorothiazide 25 mg tablet 12.5 mg PO DAILY 01/31/23 01/30/24 History losartan 50 mg tablet 50 mg PO DAILY 01/31/23 01/30/24 History metformin 500 mg tablet,extended 500 mg PO DAILY 01/31/23 01/30/24 History release 24 hr norethindrone acetate 1 mg-ethinyl 1 tab PO DAILY 01/31/23 01/30/24 History estradiol 20 mcg tablet cyclobenzaprine 5 mg tablet 5 mg PO DAILYP PRN MUSCLE SPASMS 01/29/24 01/30/24 History lamotrigine 200 mg tablet,extended 200 mg PO HS 01/29/24 01/30/24 History release 24 hr buspirone 15 mg tablet 15 mg PO TIDP PRN Anxiety 01/30/24 01/30/24 History temazepam 15 mg capsule 15 mg PO HSP PRN Sleep 01/30/24 01/30/24 History New Prescriptions to Start Prescriptions: Allergies Allergy/AdvReac Type Severity Reaction Status Date / Time bupropion (From Wellbutrin) Allergy Seizure Verified 01/29/24 21:05 ciprofloxacin (From Cipro) Allergy Other Verified 01/29/24 21:05 lisinopril Allergy facial Verified 01/29/24 21:05 swelling Discharge Plan Disposition Patient Disposition: Home, Self-Care Discharge Order Discharge Orders: Discharge Order (Routine); Ordered 01/31/24 Ordered By: Jayson Booth Follow up Plan Follow up with: Rain Watts MD [Primary Care Provider] - 02/06/24 11:30 am Prescriptions/Medication Reconciliation: Continued losartan 50 mg tablet 50 mg PO DAILY norethindrone ac-eth estradiol 1-20 mg-mcg tablet 1 tab PO DAILY Patient Comments: TAKE 1 TABLET BY MOUTH ONCE DAILY metformin 500 mg tablet extended release 24 hr 500 mg PO DAILY Patient Comments: TAKE 1 TABLET BY MOUTH DAILY WITH BREAKFAST desvenlafaxine succinate 25 mg tablet extended release 24 hr 50 mg PO DAILY Patient Comments: TAKE 1 TABLET BY MOUTH EVERY DAY cyclobenzaprine 5 mg tablet 5 mg PO DAILYP PRN (Reason: MUSCLE SPASMS) lamotrigine 200 mg tablet extended release 24hr 200 mg PO HS buspirone 15 mg tablet 15 mg PO TIDP PRN (Reason: Anxiety) Patient Comments: TAKE 1 TABLET BY MOUTH THREE TIMES DAILY IN THE MORNING AND IN THE EVENING. MAY TAKE 1 TABLET NEEDED DAILY FOR BREAKTHROUGH ANXIETY temazepam 15 mg capsule 15 mg PO HSP PRN (Reason: Sleep) Patient Comments: TAKE 1 CAPSULE BY MOUTH EVERY NIGHT AT BEDTIME NEEDED DIRECTED Rx Instructions: TAKE 1 CAPSULE BY MOUTH EVERY NIGHT AT BEDTIME NEEDED Held hydrochlorothiazide 25 mg tablet 12.5 mg PO DAILY Hold Instructions: Resume on 02/14/24. Please hold this medication as her blood pressures have been stable during hospitalization. I would strongly encourage you to follow-up with your PCP to ask whether you need to restart this medication. Low blood pressures can exacerbate the inflammation in your colon. Patient Comments: TAKE 1 TABLET BY MOUTH DAILY Problem Reconciliation Problems Reviewed?: Yes Patient Discharge Instructions Patient Instructions: DI for Sepsis -- Adult, DI for Colitis Print Language: Wallisian Providers Primary Care Provider: Rain Watts Admit Provider: Miguel Marcail Attending Provider: Miguel Marcial
[2024-02-01 22:02] LABS: POC Glucose,Bedside 91 (70-110)
[2024-02-01 22:02] LABS: POC Glucose,Bedside 107 (70-110)
--- NOTE | 2024-02-02 11:12 | CARE MANAGER ---
Attempted to contact patient x2 related to hospital discharge. Left VM message. IZABEL Macias
== END 2024-01-31 13:06 | disposition home or self-care (01) | DRG 395 ==
LOC: ER 16:29 → 2ND 19:09
PROVIDERS: Emergency Medicine; Internal Medicine Gastroenterology; Physician Assistant; Student in an Organized Health Care Education/Training Program; Admitting Provider Internal Medicine Adolescent Medicine; Emergency Provider Emergency Medicine; PCP Pediatrics; Visit Provider Internal Medicine Adolescent Medicine
PROC: 0DBM8ZX Excision of Descending Colon, Via Natural or Artificial Opening Endoscopic, Diagnostic (ICD-10-PCS; principal; 2024-01-30 12:30)
DX: K55.039 Acute (reversible) ischemia of large intestine, extent unspecified (principal); E11.9 Type 2 diabetes mellitus without complications; I10 Essential (primary) hypertension; Z79.4 Long term (current) use of insulin; Z79.899 Other long term (current) drug therapy; E87.6 Hypokalemia
CPT/HCPCS: 36415; 74174; 74177; 80053; 81001; 82272; 82962; 83036; 83605; 83690; 83735; 84145; 84703; 85007; 85025; 85610; 85651; 86140; 86803; 87040; 87086; 87389; 87507; 88304; 99285; G0328; J0131; J1171; J2270; J2405; J2543; J3475; J7030; Q9967

== ENCOUNTER 2024-05-06 15:19 | Outpatient (CLI) | payer MEDICAID, SELFPAY | END 2024-05-06 23:59 | disposition home or self-care (01) | LOC: LAB.DROPOF 05-08 10:12 | PROVIDERS: PCP Student in an Organized Health Care Education/Training Program; Visit Provider Student in an Organized Health Care Education/Training Program | DX: R30.0 Dysuria (principal) | CPT/HCPCS: 87086 ==

== ENCOUNTER 2024-10-29 16:42 | Outpatient (CLI) | payer MEDICAID, SELFPAY ==
--- OUTSIDE RECORDS SUMMARY | 2024-10-30 10:59 | XMS_ITS | Clinical Summary ---
Author Organization [facility] Address [address] [place] [address] Phone Care Team Providers Care Woods Rider Name Role Phone Hubert PMHNP, Esther Primary Care Physician [phone] Conditions or Problems Problem Name Problem Code Onset Date Status Entry Date Provider Comment Standard Description Annotate Panic attack 405871547 (SNOMED CT) 10/21 Active 10/21 Esther Hubert PMHNP Panic attack Body mass index (BMI) 29.0-29.9; adult Z68.29 (ICD-10-CM ) 07/15 Active 07/15 Esther Hubert PMHNP Body mass index [BMI] 29.0-29.9, adult Body mass index (BMI) 29.0-29.9; adult Z68.29 (ICD-10-CM ) 11/06 Correction 11/06 Esther Hubert PMHNP Body mass index [BMI] 29.0-29.9, adult High risk medication management 053795714 (SNOMED CT) 12/04 Active 12/04 Meghana Yee APRN High risk drug monitoring Seizure, single 45262900 (SNOMED CT) 11/06 Active 11/06 Meghana Yee APRN Seizure related to Wellbutrin Counseling for nutrition Z71.3 (ICD-10-CM ) 11/06 Inactive 11/06 Meghana Yee APRN Dietary counseling and surveillance Body mass index (BMI) 29.0-29.9; adult Z68.29 (ICD-10-CM ) 11/06 Removed 11/06 Meghana Yee APRN Body mass index [BMI] 29.0-29.9, adult Body mass index (BMI) 29.0-29.9; adult Z68.29 (ICD-10-CM ) 04/18 Correction 04/18 Meghana Yee APRN Body mass index [BMI] 29.0-29.9, adult Counseling for nutrition Z71.3 (ICD-10-CM ) 04/18 Inactive 04/18 Meghana Yee APRN Dietary counseling and surveillance Body mass index (BMI) 29.0-29.9; adult Z68.29 (ICD-10-CM ) 04/18 Removed 04/18 Meghana Yee APRN Body mass index [BMI] 29.0-29.9, adult Body mass index (BMI) 31.0-31.9; adult Z68.31 (ICD-10-CM ) 07/13 Correction 07/14 Meghana Yee APRN Body mass index [BMI] 31.0-31.9, adult Counseling for nutrition Z71.3 (ICD-10-CM ) 03/29 Inactive 03/29 Meghana Yee APRN Dietary counseling and surveillance 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 03/29 Meghana Yee APRN 5,10-Methylene tetrahydrofola te reductase deficiency Counseling for nutrition Z71.3 (ICD-10-CM ) 07/13 Inactive 07/14 Aleida Nikolask [employer]PER[employer], PMHNP Dietary counseling and surveillance Body mass index (BMI) 31.0-31.9; adult Z68.31 (ICD-10-CM ) 07/13 Removed 07/14 Aleida Feck [employer]PER[employer], PMHNP Body mass index [BMI] 31.0-31.9, adult Body mass index (BMI) 32.0-32.9; adult Z68.32 (ICD-10-CM ) 06/01 Correction 06/01 Aleida Feck [employer]PER[employer], PMHNP Body mass index [BMI] 32.0-32.9, adult Counseling for nutrition Z71.3 (ICD-10-CM ) 06/01 Inactive 06/01 Aleida Feck SUPER[employer], PMHNP Dietary counseling and surveillance Body mass index (BMI) 32.0-32.9; adult Z68.32 (ICD-10-CM ) 06/01 Removed 06/01 Aleida Feck SUPERVIS[employer], PMHNP Body mass index [BMI] 32.0-32.9, adult Body mass index (BMI) 32.0-32.9; adult Z68.32 (ICD-10-CM ) 05/12 Correction 05/13 Aleida Feck SUPERVIS[employer], PMHNP Body mass index [BMI] 32.0-32.9, adult Counseling for nutrition Z71.3 (ICD-10-CM ) 05/12 Inactive 05/13 Aleida Feck SUPERVIS[employer], PMHNP Dietary counseling and surveillance Body mass index (BMI) 32.0-32.9; adult Z68.32 (ICD-10-CM ) 05/12 Removed 05/13 Aleida Feck SUPERVIS[employer], PMHNP Body mass index [BMI] 32.0-32.9, adult Body mass index (BMI) 31.0-31.9; adult Z68.31 (ICD-10-CM ) 04/27 Correction 05/01 Aleida Feck SUPERVIS[employer]ATING [employer], PMHNP Body mass index [BMI] 31.0-31.9, adult Counseling for nutrition Z71.3 (ICD-10-CM ) 04/27 Inactive 05/01 Aleida Feck SUPERVIS[employer], PMHNP Dietary counseling and surveillance Body mass index (BMI) 31.0-31.9; adult Z68.31 (ICD-10-CM ) 04/27 Removed 05/01 Aleida Feck SUPERVISOR [employer]ATING [employer], PMHNP Body mass index [BMI] 31.0-31.9, adult Body mass index (BMI) 31.0-31.9; adult Z68.31 (ICD-10-CM ) Correction Aleida Feck SUPERVIS[employer]ATING [employer], PMHNP Body mass index [BMI] 31.0-31.9, adult Bruxism (teeth grinding) 800654216 (SNOMED CT) 04/27 Active 04/27 Aleida Feck SUPER[employer], PMHNP Bruxism Counseling for nutrition Z71.3 (ICD-10-CM ) Inactive Aleida Feck SUPER[employer]ATING [employer], PMHNP Dietary counseling and surveillance Body mass index (BMI) 31.0-31.9; adult Z68.31 (ICD-10-CM ) Removed Aleida Feck SUPERVISOR [employer]ATING [employer], PMHNP Body mass index [BMI] 31.0-31.9, adult Body mass index (BMI) 30.0-30.9; adult Z68.30 (ICD-10-CM ) 11/23 Correction 11/23 Aleida Feck SUPERVISOR [employer]ATING [employer], PMHNP Body mass index [BMI] 30.0-30.9, adult Counseling for nutrition Z71.3 (ICD-10-CM ) 11/23 Inactive 11/23 Aleida Feck SUPERVISOR [employer]ATING [employer], PMHNP Dietary counseling and surveillance Body mass index (BMI) 30.0-30.9; adult Z68.30 (ICD-10-CM ) 11/23 Removed 11/23 Aleida Feck SUPERVIS[employer], PMHNP Body mass index [BMI] 30.0-30.9, adult Sleep disturbance 56456121 (SNOMED CT) 11/23 Active 11/23 Aleida Feck SUPER[employer], PMHNP Dyssomnia Anxiety disorder 902880241 (SNOMED CT) 11/23 Active 11/23 Aleida Feck SUPER[employer]ATING [employer], PMHNP Anxiety disorder Depression, major, moderate 704021 (SNOMED CT) 11/23 Active 11/23 Aleida Ko APRN, PMHNP Moderate major depression PTSD 04712775 (SNOMED CT) 11/23 Active 11/23 Aleida Ko APRN, PMHNP Posttraumatic stress disorder Medications Medication Instructions Start Date Stop Date Generic Name NDC Provider PRISTIQ 50 MG [id number] Take 1 tablet by mouth every night at bedtime 10/22 desvenlafaxine succinate 51822682382 Esther Hubert PMHNP TEMAZEPAM 15 MG CAPS TAKE 1 CAPSULE BY MOUTH EVERY NIGHT AT BEDTIME 07/15 temazepam 70001528928 Esther Hubert PMHNP TEMAZEPAM 7.5 MG CAPS TAKE 1 CAPSULE BY MOUTH EVERY NIGHT AT BEDTIME 10/21 temazepam 23712381471 Esther Hubert PMHNP TEMAZEPAM 15 MG CAPS TAKE 1 CAPSULE BY MOUTH EVERY NIGHT AT BEDTIME 07/15 temazepam 36352778485 Esther Hubert PMHNP ALPRAZOLAM 0.25 MG TABS Take 1 tablet by mouth once a day as needed for anxiety 10/21 alprazolam 70209110607 Esther Hubert PMHNP TEMAZEPAM 15 MG CAPS Take 1 capsule by mouth every night at bedtime 07/15 temazepam 96197326454 Esther Hubert PMHNP DESVENLAFAXINE SUCCINATE ER 50 MG [id number] TAKE 1 TABLET BY MOUTH EVERY DAY 11/06 desvenlafaxine succinate 61336119878 Esther Hubert PMHNP LAMOTRIGINE ER 200 MG [id number]-WBO 1 tablet by mouth once a day 07/13 lamotrigine 01456325599 Esther Hubert PMHNP BUSPIRONE HCL 15 MG TABS TAKE 1 TABLET BY MOUTH THREE TIMES DAILY IN THE MORNING AND IN THE EVENING. MAY TAKE 1 TABLET NEEDED DAILY FOR BREAKTHROUGH ANXIETY 10/13 buspirone 23343325221 Esther Hubert PMHNP DESVENLAFAXINE SUCCINATE ER 100 MG [id number]-JCG TAKE 1 TABLET BY MOUTH EVERY DAY 07/15 desvenlafaxine succinate 07267806134 Esther Hubert PMHNP TEMAZEPAM 15 MG CAPS TAKE 1 CAPSULE BY MOUTH EVERY NIGHT AT BEDTIME NEEDED DIRECTED 07/02 temazepam 09758927215 Maryan Sage SUPER[employer] PMHNP RESTORIL 7.5 MG CAPS Take 1 capsule by mouth every night at bedtime as needed as directed 12/07 temazepam 04695662540 Meghana Yee [employer]PER[employer] RESTORIL 15 MG CAPS Take 1 capsule by mouth every night at bedtime as needed as directed temazepam 95280425653 Meghana Yee APRN BUSPIRONE HCL 15 MG TABS Take 1 tablet by mouth three times a day :take 1 tab in the morning and 1 tab in the evening may take 1 tab as needed once a day for breakthrough anxiety 11/06 buspirone 23318329475 Meghana Yee APRN BUSPIRONE HCL 15 MG TABS TAKE 1 TABLET BY MOUTH THREE TIMES DAILY IN THE MORNING AND IN THE EVENING. MAY TAKE 1 TABLET NEEDED DAILY FOR BREAKTHROUGH ANXIETY buspirone 11293168737 Meghana Yee APRN RESTORIL 7.5 MG CAPS Take 1 capsule by mouth every night at bedtime as needed as directed 12/07 temazepam 61727508282 Meghana Yee APRN SEROQUEL 25 MG TABS Take 1-4 tablet by mouth every night at bedtime as needed as directed 11/06 quetiapine 34982589046 Meghana Yee APRN BUSPIRONE HCL 10 MG TABS Take 1 tablet by mouth three times a day :take 1 tab in the morning and 1 tab in the evening may take 1 tab as needed once a day for breakthrough anxiety 03/29 buspirone 59687017941 Meghana Yee [employer]PER[employer] DESVENLAFAXINE SUCCINATE ER 25 MG [id number] TAKE 1 TABLET BY MOUTH EVERY DAY 04/04 desvenlafaxine succinate 14370664912 Meghana Yee SUPER[employer] SEROQUEL 25 MG TABS Take 1-4 tablet by mouth every night at bedtime as needed as directed 11/06 quetiapine 81749486923 Meghana Yee [employer]PER[employer] BUSPIRONE HCL 15 MG TABS Take 1 tablet by mouth three times a day :take 1 tab in the morning and 1 tab in the evening may take 1 tab as needed once a day for breakthrough anxiety 11/06 buspirone 54087424529 Meghana Yee [employer]PER[employer] DESVENLAFAXINE SUCCINATE ER 50 MG JV85V-RPF TAKE 1 TABLET BY MOUTH EVERY DAY 11/06 desvenlafaxine succinate 43959488324 Meghana Yee [employer]PER[employer] CYCLOBENZAPRINE HCL 5 MG TABS Take 1 tablet by mouth twice a day as needed for muscle tension related to anxiety 04/18 cyclobenzaprine 30298132334 Meghana Yee [employer] LAMOTRIGINE ER 200 MG [id number]-UYD 1 tablet by mouth once a day 07/13 lamotrigine 82466529628 Meghana Yee [employer]PER[employer] BUSPIRONE HCL 10 MG TABS Take 1 tablet by mouth three times a day :take 1 tab in the morning and 1 tab in the evening may take 1 tab as needed once a day for breakthrough anxiety 03/29 buspirone 51012890406 Meghana Yee [employer] CYCLOBENZAPRINE HCL 5 MG TABS Take 1 tablet by mouth twice a day as needed as directed for muscle tension related to anxiety 10/16 cyclobenzaprine 81354204908 Meghana [place] [employer] CYCLOBENZAPRINE HCL 5 MG TABS Take 1 tablet by mouth twice a day as needed for muscle tension related to anxiety 04/18 cyclobenzaprine 02102242507 Meghana [place] [employer] CLONIDINE HCL 0.1 MG TABS TAKE 1 AND 1/2 TABLETS BY MOUTH AT BEDTIME FOR TEETH GRINDING 03/29 clonidine hcl 37436536345 Meghana Yee APRN PRISTIQ 25 MG [id number]-VFO Take 1 tablet by mouth once a day 03/29 desvenlafaxine succinate 29532978894 Meghana Yee APRN DESVENLAFAXINE SUCCINATE ER 25 MG [id number] TAKE 1 TABLET BY MOUTH EVERY DAY 04/04 desvenlafaxine succinate 98474920165 Meghana Yee APRN CLONIDINE HCL 0.1 MG TABS Take 1-1.5 tablet by mouth at bedtime take 1-1.5 tablets at bedtime for teeth grinding 03/29 clonidine hcl 97542623803 Meghana Yee APRN CLONIDINE HCL 0.1 MG TABS TAKE 1 AND 1/2 TABLETS BY MOUTH AT BEDTIME FOR TEETH GRINDING 03/29 clonidine hcl 85851845067 Meghana Yee APRN BUSPIRONE HCL 7.5 MG TABS 1 tablet by mouth three times a day as directed : take 1 tab po qam, then 1 tab po q afternoon; then may take 1 tab po prn qd for breakthrough anxiety 04/07 buspirone 42927092085 Meghana Yee APRN CLONIDINE HCL 0.1 MG TABS Take 1-1.5 tablet by mouth at bedtime take 1-1.5 tablets at bedtime for teeth grinding 03/29 clonidine hcl 72499623480 Meghana Yee APRN PRISTIQ 25 MG [id number]-PMA Take 1 tablet by mouth once a day 03/29 desvenlafaxine succinate 39162089589 Meghana Yee APRN BUSPIRONE HCL 10 MG TABS Take 1 tablet by mouth three times a day :take 1 tab in the morning and 1 tab in the evening may take 1 tab as needed once a day for breakthrough anxiety 03/29 buspirone 91242160545 Meghana Yee [employer] HYDROXYZINE HCL 25 MG TABS 1-2 tablet by mouth twice a day as needed : for anxiety/anxie ty attacks and sleep 11/23 hydroxyzine hcl 50684204380 Meghana Yee [employer] LAMOTRIGINE ER 200 MG IZ54M-UCS 1 tablet by mouth once a day 07/13 lamotrigine 95733916904 Meghana Yee [employer] LAMOTRIGINE 200 MG TABS 1 tablet by mouth once a day 03/31 lamotrigine 13898416046 Aleida Feck [employer], PMHNP LAMOTRIGINE ER 200 MG [id number] 1 tablet by mouth once a day 07/13 lamotrigine 06654306151 Aleida Feck [employer], PMHNP DULOXETINE HCL 60 MG CPEP 1 capsule by mouth once a day 06/01 duloxetine 28836456868 Hayli Guadalupe [employer] FR[employer]PERATOR HYDROCHLOROTHIAZIDE 12.5 MG TABS hydrochlorothiazide 42026996572 Tran yli Guadalupe [employer] FR[employer] OPERATOR METFORMIN HCL ER 500 MG [id number] metformin 21278133249 Hayli Guadalupe [employer]ING FRAME OPERATOR LOSARTAN POTASSIUM 50 MG TABS losartan 35712526244 Hayli Guadalupe [employer]ING FRAME OPERATOR DULOXETINE HCL 60 MG CPEP 1 capsule by mouth once a day 06/01 duloxetine 83588867592 Aleida Feck [employer]PER[employer], PMHNP HYDROCHLOROTHIAZIDE 25 MG TABS Take 1 tablet by mouth once a day 05/12 hydrochlorothiazide 53020213928 Cynthia Caputo MA VIIBRYD 20 MG TABS 1 tablet by mouth once a day as directed : take with at least 250 calories 03/31 vilazodone 90507275512 Aleida Feck [employer]PER[employer], PMHNP BUSPIRONE HCL 7.5 MG TABS 1 tablet by mouth three times a day as directed : take 1 tab po qam, then 1 tab po q afternoon; then may take 1 tab po prn qd for breakthrough anxiety 04/07 buspirone 34922746030 Aleida Feck SUPER[employer], PMHNP LAMOTRIGINE 200 MG TABS 1.5 tablet by mouth once a day 04/27 lamotrigine 82585516426 Aleida Feck [employer]PER[employer], PMHNP TIZANIDINE HCL 4 MG TABS 1/2 - 2 tablet by mouth at bedtime as needed 04/27 tizanidine 47716731866 Aleida Feck [employer], PMHNP PROPRANOLOL HCL 20 MG TABS 1 tablet by mouth twice a day as needed 03/31 propranolol 22092968005 Aleida Feck [employer], PMHNP VIIBRYD 20 MG TABS 1 tablet by mouth once a day as directed : take with at least 250 calories 03/31 vilazodone 69728722961 Aleida Feck [employer]PER[employer], PMHNP LAMOTRIGINE 200 MG TABS 1 tablet by mouth once a day 03/31 lamotrigine 72203876655 Aleida Feck [employer]PER[employer], PMHNP TRAZODONE HCL 50 MG TABS 1/2 - 2 tablet by mouth at bedtime as needed 02/24 trazodone 34396066742 Aleida Feck SUPER[employer], PMHNP LAMOTRIGINE 200 MG TABS 1 tablet by mouth once a day 02/24 lamotrigine 78871180528 Aleida Feck SUPER[employer], PMHNP TIZANIDINE HCL 4 MG TABS 1/2 - 2 tablet by mouth at bedtime as needed 04/27 tizanidine 31973374597 Aleida Feck SUPER[employer], PMHNP LAMOTRIGINE 200 MG TABS 1.5 tablet by mouth once a day 04/27 lamotrigine 69375481849 Aleida Feck SUPER[employer], PMHNP TRAZODONE HCL 50 MG TABS 1/2 - 2 tablet by mouth at bedtime as needed trazodone 00229304778 Aleida Feck SUPER[employer], PMHNP LAMOTRIGINE 100 MG TABS 1 tablet by mouth once a day 11/23 lamotrigine 89674363726 Aleida Feck SUPER[employer], PMHNP PROPRANOLOL HCL 20 MG TABS 1/2 tablet by mouth four times a day as needed : 1/2 tab up to 4 times a day for situational anxiety 11/23 propranolol 76248835711 Aleida Feck [employer]PER[employer], PMHNP LAMOTRIGINE 200 MG TABS 1 tablet by mouth once a day lamotrigine 14102904112 Aleida Feck SUPER[employer], PMHNP PROPRANOLOL HCL 20 MG TABS 1 tablet by mouth twice a day as needed propranolol 60913230196 Aleida Feck [employer]PER[employer], PMHNP LAMOTRIGINE 25 MG TABS 1-2 tablet by mouth once a day as directed : take 1 tab po qd for 2 weeks then take 2 tab po qd for 2 weeks then start 100mg script 11/23 lamotrigine 10288555943 [facility] HYDROXYZINE HCL 25 MG TABS 1-2 tablet by mouth twice a day as needed : for anxiety/anxie ty attacks and sleep 11/23 hydroxyzine hcl 18527015079 Aleida Feck SUPER[employer], PMHNP LAMOTRIGINE 100 MG TABS 1 tablet by mouth once a day 11/23 lamotrigine 90638739376 Aleida Feck SUPER[employer], PMHNP LAMOTRIGINE 25 MG TABS 1-2 tablet by mouth once a day as directed : take 1 tab po qd for 2 weeks then take 2 tab po qd for 2 weeks then start 100mg script 11/23 lamotrigine 60758463887 Aleida Feck SUPER[employer], PMHNP PROPRANOLOL HCL 20 MG TABS 1/2 tablet by mouth four times a day as needed : 1/2 tab up to 4 times a day for situational anxiety 11/23 propranolol 56690805895 Aleida Feck SUPER[employer], PMHNP JUNEL 04/08 1-20 MG-MCG TABS Take 1 tablet by mouth every morning norethindrone ac-eth estradiol 37863890096 Hayli Guadalupe [employer]PERATOR HYDROCHLOROTHIAZIDE 25 MG TABS Take 1 tablet by mouth once a day hydrochlorothiazide 54370018072 Hayli Guadalupe [employer]ENDING FRAME OPERATOR Medications Administered No information available. Allergies, Adverse Reactions, Alerts Allergy Name Reaction Description Start Date Severity Statu s Provider CIPRO Critical Active Marielos Locke MA GONZÁLEZ INHIBITORS FACIAL SWELLING Severe Active Aleida Feck [employer], PMHNP WELLBUTRIN SEIZURES Critical Active Aleida Feck [employer], PMHNP Results Date Name Value Unit Range Flag Description Lab Report: DRUG MONITOR, PA JANELL 1, SCREEN, URINE, DRUG MONITOR, BUP, SCR ... PHENCYCLIDIN NEGATIVE ng/mL <25 N Phencyc lidine [Presence] in Urine OXYCODONE NEGATIVE <100 N Oxycodone urine screening METHADONEURN NEGATIVE <100 N Methado ne [Presence] in Urine by Screen method MARIJUANAURN NEGATIVE <20 N Marijua na, cannabinoid screen Urine COCAINE UR NEGATIVE <150 N cocaine, urine BENZODIAZ UR POSITIVE <100 A Benzodi azepines [Presence] in Urine AMPHETAMI UR NEGATIVE <500 N Ampheta mines [Presence] in Urine Plan of Care Type Date Detail Appointment 12:00 PM Esther Gaspar HNP, [address], [place], [address], Pending order T1 Drug Screen S TANDARD-Urine w/o Confirmation Pending order T2 Drug Screen-U rine w/ Confirmation Pending order T1 Drug Screen S TANDARD-Urine w/o Confirmation Patient education Patient Educat ion Given Patient education Patient Educat ion Given Patient education Patient Educat ion Given Patient education Patient Educat ion Given Patient education Patient Educat ion Given Patient education Patient Educat ion Given Patient education Patient Educat ion Given Patient education Patient Educat ion Given Procedures Code Procedure Name Date Entry Date CPT-1159F Medication list docu mented in medical record [id number] Medication Reconciliation SCT-[id number] Medication Reconciliation CPT-3077F Most recent systolic blood pressure >=140 mm Hg CPT-3079F Most recent diastoli c blood pressure 80-89 mm Hg CPT-1159F Medication list docu mented in medical record CPT-1160F Review of all medica tions by a prescribing practitioner [facility] [id number] T1 Drug Screen STAND MAURICE-Urine w/o Confirmation CPT-1159F Medication list docu mented in medical record [facility] [id number] T2 Drug Screen-Urine w/ Confirmation 2024 CPT-1159F Medication list docu mented in medical record [facility] [id number] T1 Drug Screen STAND MAURICE-Urine w/o Confirmation SCT-[id number] Medication Reconciliation CPT-3077F Most recent systolic blood pressure >=140 mm Hg SCT-[id number] Medication Reconciliation CPT-3077F Most recent systolic blood pressure >=140 mm Hg SCT-[id number] Medication Reconciliation CPT-3075F Most recent systolic blood pressure 130-139 mm Hg CPT-3079F Most recent diastoli c blood pressure 80-89 mm Hg SCT-[id number] Medication Reconciliation CPT-3075F Most recent systolic blood pressure 130-139 mm Hg CPT-3079F Most recent diastoli c blood pressure 80-89 mm Hg SCT-[id number] Medication Reconciliation CPT-3075F Most recent systolic blood pressure 130-139 mm Hg SCT-[id number] Medication Reconciliation CPT-3075F Most recent systolic blood pressure 130-139 mm Hg CPT-3079F Most recent diastoli c blood pressure 80-89 mm Hg SCT-[id number] Medication Reconciliation SCT-[id number] Medication Reconciliation CPT-3077F Most recent systolic blood pressure >=140 mm Hg CPT-3079F Most recent diastoli c blood pressure 80-89 mm Hg SCT-[id number] Medication Reconciliation CPT-3077F Most recent systolic blood pressure >=140 mm Hg SCT-[id number] Medication Reconciliation CPT-3077F Most recent systolic blood pressure >=140 mm Hg CPT-3079F Most recent diastoli c blood pressure 80-89 mm Hg Vital Signs Date Name Value Unit Description BMI (Body Mass Index) 29.11 kg/m2 Bod y Mass Index (Ratio) BP Diastolic 80 mm[Hg] blood pressu re, diastolic BP Systolic 144 mm[Hg] blood pressur e, systolic BSA (Body Surface Area) 1.86 b keon surface area Heart Rate 93 /min pulse rate Heart Rate 88 /min pulse rate 10 Height 64 [in_us] height E&M Height 162.56 cm height in cent imeters E&M Weight Measured 169 [lb_av] weight E& M Weight Measured 169 [lb_av] weight E& M Weight Measured 76.82 kg weight in kilograms E&M Body Temperature 97.8 [degF] temperat ure E&M Body Temperature 36.56 Maryana temperat ure in centigrade E&M Respiratory Rate 16 /min respirat ory rate E&M Immunizations No information available. Advance Directives No information available.
--- OUTSIDE RECORDS SUMMARY | 2024-10-30 10:59 | XMS_ITS | Encounter Summary ---
[facility] Address [address] [place] [address] Care Team Providers Care Tinner Automatic Name Role Phone Luna Zheng APRN Primary Care Provider + [phone] Encounter Details Date Type Department Care Team (Late st Contact Info) Description 07/09/2024 Results Follow-Up [facility] [address] [facility] [place] [facility] [address] [place] [address] Luna Zheng APRN [address] [facility] [place] [facility] [address] [place] [address] Social History Tobacco Use Types Packs/Day Years Used Date Smoking Tobacco: Never Passive Smoke Exposure: Never Smokeless Tobacco: Never Alcohol Use Standard Drinks/Week Comments Yes 1 (1 standard drink = 0.6 oz pur e alcohol) Socially PHQ-2 Answer Date Recorded Retired PHQ-9: Brief Depression Severity Measure Score 0 01/05/2023 PHQ-2 Answer Date Recorded Patient Health Questionnaire-2 Score 0 07/08/2024 Comments No Sex and Gender Information Value Date Recorded Sex Assigned at Female 07/05/2024 10:44 AM EDT Legal Sex Female 10:28 AM EDT Gender Identity Not on file Sexual Orientation Straight 07/05/2024 10 :44 AM EDT Occupation Industry Job Start Date Job End Date Nurse Not on file Not on file Not on file documented as of this encounter Plan of Treatment Upcoming Encounters Date Type Department Care Team (Late st Contact Info) Description 01/13/2025 11:15 AM EDT Office Visit [facility] [address] [facility] [place] [address] [address] Luna Zheng APRN [address] [facility] [place] [address] [address] documented as of this encounter Visit Diagnoses Not on filedocumented in this encounter Care Teams Tinner Automatic Relationship Specialty Start Date End Date Luna Zheng APRN [address] [facility] [place] [address] [address] PCP - General Nurse Practitioner 05/09/23 documented as of this encounter
--- OUTSIDE RECORDS SUMMARY | 2024-10-30 10:59 | XMS_ITS | Clinical Summary ---
Author Organization [facility] Address [address] [place] [address] Care Team Providers Care Line Supply Name Role Phone Luna Zheng KERRY Primary Care Provider [phone] Allergies Active Allergy Reactions Criticality Noted Date Comments Bupropion Seizure High 01/19/2006 Ciprofloxacin Headache Medium 05/13/2015 Lisinopril Swelling Medium 10/15/2021 Medications Multiple Vitamins-Minerals (MULTIVITAMIN WITH MINERALS) tablet tablet Take 1 tablet by mouth Daily. Active lamoTRIgine (LaMICtal) 200 MG tablet Take 1 tablet by mouth Every Night. 3 Active metFORMIN ER (GLUCOPHAGE-XR) 500 MG 24 hr tabletIndications :Pre-diabetes TAKE 1 TABLET BY MOUTH DAILY WITH BREAKFAST 90 tablet 1 4 Active desvenlafaxine (PRISTIQ) 50 MG 24 hr tablet Take 1 tablet by mouth Daily. 4 Active cyclobenzaprine (FLEXERIL) 5 MG tablet Take 1 tablet by mouth As Needed. 4 Active busPIRone (BUSPAR) 15 MG tablet Take 1 tablet by mouth As Needed. 4 Active norethindrone-eth inyl estradiol (MICROGESTIN) 1-20 MG-MCG per tablet Take 1 tablet by mouth Daily. 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 There is mild ectasia of the aorta. Essential hypertension 03/02/2022 Overview (08/26/2022): Echo (07/25/2022): LVEF 55%. No significant valvular abnormalities. Bruxism (teeth grinding) 02/24/2022 Anxiety disorder 11/23/2021 Posttraumatic stress disorder 11/23/2021 Major depressive disorder, single episode, moder ate degree 11/23/2021 Sleep disturbance 11/23/2021 Chest pain 06/14/2017 Palpitations 06/14/2017 Dizziness 06/14/2017 Family history of premature CAD 06/14/2017 Murmur, cardiac 06/14/2017 Resolved Problems Problem Noted Date Diagnosed Date Resolved Date Blues 03/02/2022 05/09/2023 Shortness of breath 06/14/2017 05/09/19 24 Immunizations Immunization Administration Dates Next Due Flublok 18+yrs 01/25/2022 Fluzone >6mos 02/13/2024 Fluzone (or Fluarix & Flulaval for VFC) >6mos Tdap 05/04/2022 Family History Medical History Relation Name Comments Heart attack Brother 1 Rob Heart disease Brother 1 Rob Anxiety disorder Brother 2 Kilo Cancer Brother 2 Kilo Colon cancer Brother 2 Kilo 40s Depression Brother 2 Kilo Melanoma Brother 3 Alcohol abuse Father Bill Atrial fibrillation Father Bill Hypertension Father Bill Lung cancer Father Bill Ovarian cancer Maternal Aunt 40's Heart attack Maternal Grandfather Florentin Heart disease Maternal Grandfather Florentin Lung cancer Maternal Grandfather Florentin Anxiety disorder Mother [place] Arrhythmia Mother Nga tachycardia Depression Mother Nga Heart disease Mother [place] Hypertension Mother Nga Tremor Mother Nga Cervical cancer Other AUNT No Known Problems Paternal Grandfather No Known Problems Paternal Grandmother Breast cancer Neg Hx Relation Name Status Comments Brother 1 Rob Brother 2 Kilo Alive Brother 3 Alive Father Marcial Maternal Aunt Maternal Grandfather Florentin Maternal Grandmother Mother [place] Alive Other AUNT Paternal Grandfather Paternal Grandmother Social History Tobacco Use Types Packs/Day Years Used Date Smoking Tobacco: Never Passive Smoke Exposure: Never Smokeless Tobacco: Never Tobacco Cessation:Counseling Given: Not Answered Alcohol Use Standard Drinks/Week Comments Yes 1 [...] file Not on file Not on file Last Filed Vital Signs Vital Sign Reading Time Taken Comments Blood Pressure 128/82 07/08/2024 11:05 AM EDT Pulse 83 07/08/2024 11:05 AM EDT Temperature 36.7 C (98 F) 01/05/2023 3:40 PM EDT Respiratory Rate 14 10/18/2022 2:16 PM EDT Oxygen Saturation 100% 07/08/2024 11:05 AM EDT Inhaled Oxygen Concentration - - Weight 78.9 kg (174 lb) 07/08/2024 11:05 AM EDT Height 157.5 cm (5' 2.01 ) 07/08/2024 11:05 AM E DT Body Mass Index 31.82 07/08/2024 11:05 AM EDT Plan of Treatment Upcoming Encounters Date Type Department Care Team (Late st Contact Info) Description 01/13/2025 11:15 AM EDT Office Visit [facility] [address] [address] Luna Zheng APRN [address] [address] Health Maintenance Due Date Last Done Comments COLOGUARD 2017 COLON CANCER SCREENING 5 YEA R SIGMOIDOSCOPY [address] COLONOGRAPHY 2017 FECAL OCCULT BLOOD TEST 2017 FIT Testing (1 year) 2017 Pneumococcal Vaccine 50+ (1 of 1 - PCV) 2022 ZOSTER VACCINE (1 of 2) 2022 Annual Gynecologic Pelvic an d Breast Exam 10/16/2022 10/15/2021, 08/26/2020 COVID-19 Vaccine (1 - 2023-2 5 season) 2023 PAP SMEAR 10/15/2024 10/15/2021, 06/0 11/2020, 12/20/2018 INFLUENZA VACCINE 12/18/2024 02/13/2024, , 01/25/2022 MAMMOGRAM 06/06/2025 06/07/2023, 03/21, 02/11/2019, Additional history exists ANNUAL PHYSICAL 07/08/2025 07/08/2024 LIPID PANEL 07/08/2025 07/08/2024, 10/19, 05/09/2023, Additional history exists COLONOSCOPY 01/31/2029 05/15/2024 COLORECTAL CANCER SCREENING 01/31/2029 TDAP/TD VACCINES (2 - Td or Tdap) 05/04/2032 023 HEPATITIS C SCREENING Completed 07/08/2024 Procedures Procedure Name Priority Date/Time Associated Diagnosis Comments LIPID PANEL Routine 07/08/2024 11:30 AM EDT Annual physical exam HEPATITIS C ANTIBODY Routine 07/08/2024 11:30 AM EDT Encounter for hepatitis C screening test for low risk patient SCANNED - COLONOSCOPY 05/15/2024 MAMMO SCREENING DIGITAL TOMOSYNTHESIS BILATERAL W CAD Routine 06/07/2023 1:09 PM EDT Encounter for screening mammogram for malignant neoplasm of breast LIQUID-BASED PAP SMEAR, [facility]) Routine 10/15/2021 11:59 AM EDT Women's annual routine gynecological examination SCANNED - PAP SMEAR 08/26/2020 from Last 3 Months or Most Recently Relevant to Health Maintenance Results * Hepatitis C Antibody (07/08/2024 11:30 AM EDT) Pathologist [facility] Hepatitis C Ab Non-Reacti ve Non-Reacti ve 07/09/2024 1:01 AM EDT [facility] Blood Structure of right upper limb / Unknown Venipuncture / Unknown 07/08/2024 11:30 AM EDT 07/08/2024 11:30 AM EDT Luna Zheng APRN LAB BLOOD ORDERABLES Final R esult [facility]
[address] [place] [address], * (ABNORMAL) Lipid Panel (07/08/2024 11:30 AM EDT) Pathologist [facility] Total Cholesterol 210(H) 0 - 200 mg/dL 07/08/2024 11:47 PM EDT [facility] Triglycerides 90 0 - 150 mg/dL 07/08/2024 11:47 PM EDT [facility] HDL Cholesterol 64(H) 40 - 60 mg/dL 07/08/2024 11:47 PM EDT [facility] LDL Cholesterol 130(H) 0 - 100 mg/dL 07/08/2024 11:47 PM EDT [facility] VLDL Cholesterol 16 5 - 40 mg/dL 07/08/2024 11:47 PM EDT [facility] LDL/HDL Ratio 2.00 07/08/2024 11:47 PM EDT [facility] Blood Structure of right upper limb / Unknown Venipuncture / Unknown 07/08/2024 11:30 AM EDT 07/08/2024 11:30 AM EDT Narrative [facility] - 07/08/2024 11:47 PM EDT Cholesterol Reference Ranges (U.S. Department of Health and Human Services ATP III Classifications) Desirable <200 mg/dL Borderline High 200-239 mg/dL High Risk >240 mg/dL Triglyceride Reference Ranges (U.S. Department of Health and Human Services ATP III Classifications) Normal <150 mg/dL Borderline High 150-199 mg/dL High 200-499 mg/dL Very High >500 mg/dL HDL Reference Ranges (U.S. Department of Health and Human Services ATP III Classifications) Low <40 mg/dl (major risk factor for CHD) High >60 mg/dl ('negative' risk factor for CHD) LDL Reference Ranges (U.S. Department of Health and Human Services ATP III Classifications) Optimal <100 mg/dL Near Optimal 100-129 mg/dL Borderline High 130-159 mg/dL High 160-189 mg/dL Very High >189 mg/dL LDL is calculated using the NIH LDL-C calculation. Luna Zheng APRN LAB BLOOD ORDERABLES Final R esult [facility]
[address] [place] [address], * Colonoscopy, Scan (05/15/2024) [facility] CHART REVIEW TABS Final Re sult * Mammo Screening Digital Tomosynthesis Bilateral With CAD (06/07/2023 1:09 PM EDT) Anatomical Region Laterality Modality Breast N/A Mammography 06/08/2023 11:1 0 AM EDT Impressions 06/08/2023 11:13 AM EDT Negative bilateral mammogram. RECOMMENDATION: Continue annual screening mammography. BI-RADS CATEGORY 1, NEGATIVE. CAD was utilized. The standard false-negative rate of mammography is between 10% and 25%. Complex patterns or increased breast density will markedly elevate the false-negative rate of mammography. A letter, in lay terminology, with the results of this exam will be mailed to the patient. This report was finalized on 06/08/2023 11:[address] Gurvinder Flores MD. Narrative 06/08/2023 11:13 AM EDT DIGITAL SCREENING MAMMOGRAM WITH TOMOSYNTHESIS HISTORY: Screening Mammography. Low dose full field digital breast tomosynthesis imaging was performed with 2D and 3D acquisitions consisting of bilateral CC and MLO views. Examination is compared to prior examination dating back to 09/30/2013. Examination is read in conjunction with computer aided detection. FINDINGS: There are scattered areas of fibroglandular density. No suspicious masses, microcalcifications or areas of architectural distortion are present. Luna Zheng MUSIC STORE MANAGER IM MAMMOGRAPHY ORDERABLES F inal Result * LIQUID-BASED PAP SMEAR, [facility]) (10/15/2021 11:59 AM EDT) Reference Lab Report [facility] [address] [place] [address] or [phone] Franky Abraham M.D., [employer] Business Intelligence Developer PATIENT NAME LABORATORY NO. [address] ELVA MAYMaurilio [id number] AGE SEX SSN CLIENT REF # [facility] [id number] F [id number] [id number] REQUESTING MJose Daniel. [place] [address] JOELLEN MANZANARES DATE COLLECTED DATE RECEIVED DATE REPORTED 10/15/2021 10/15/2021 10/19/2021 ThinPrep Pap with Cytyc Imaging DIAGNOSIS: Negative for intraepithelial lesion or malignancy Multiple factors can influence accuracy of Pap tests; therefore, screening at regular intervals is necessary for early cancer detection. COMMENT: Benign cellular changes associated with atrophy are present. SPECIMEN ADEQUACY: SATISFACTORY FOR EVALUATION Transformation zone is present. SOURCE OF SPECIMEN: CERVICAL SLIDES: 1 CLINICAL HISTORY: Women's annual routine gynecological examination CARE TRANSITION MGR: MARYSE MONTANA(ASCP) CPT CODES: 54280 10/19/2021 11:24 AM EDT [facility] ThinPrep Vial Collection / Unknown 10/15/2021 11:59 AM EDT 10/15/2021 11:59 AM EDT Joellen Manzanares MD PATHOLOGY/CYTOLOGY ORDERABLES Fi nal Result [facility]
[address] [place] [address], * SCANNED - PAP SMEAR (08/26/2020) Catia Burns APRN CHART REVIEW TABS Final Result from Last 3 Months or Most Recently Relevant to Health Maintenance Insurance [employer] [place] [id number] Care Teams Line Supply Relationship Specialty Start Date End Date Luna Zheng APRN [address] [place], [place] [id number] PCP - General Nurse Practitioner 05/09/23
--- OUTSIDE RECORDS SUMMARY | 2024-10-30 10:59 | XMS_ITS | Referral Summary ---
Author Organization [facility] ([place], [place], [place], [place]) Address [address] [place] [address] Care Team Providers Care Customer Success Director Name Role Phone Unavailable Primary Care Provider Unavailabl e Allergies Active Allergy Reactions Criticality Noted Date Comments Bupropion Other (See Comments) 01/19/2006 Other reaction(s): Other (See Comments) seizures Ciprofloxacin 05/13/2015 Other reaction(s): Headache Lisinopril Swelling High 10/15/2021 Bupropion Hcl 06/10/2022 Medications metFORMIN (GLUCOPHAGE-XR) 500 MG 24 hr tablet Take 1 tablet (500 mg total) by mouth daily. 3 Active busPIRone (BUSPAR) 7.5 MG tablet Take 1 tablet (7.5 mg total) by mouth 3 (three) times daily. 3 Active losartan (COZAAR) 50 MG tablet Take 1 tablet (50 mg total) by mouth daily. 3 Active lamoTRIgine 200 mg TR24 Take 1 tablet by mouth in the morning. 3 Active Junel 04/08, , 1-20 mg-mcg per tablet Take 1 tablet by mouth daily. 3 Active hydroCHLOROthia zide (HYDRODIURIL) 12.5 MG tablet 3 Active cyclobenzaprine (FLEXERIL) 10 MG tablet Take 0.5 tablets (5 mg total) by mouth. 3 Active multivitamin with minerals tablet Take 1 tablet by mouth daily. Active ibuprofen (ADVIL,MOTRIN) 800 MG tablet ibuprofen 800 mg tablet Take 1 tablet 3 times a day by oral route as needed. Active busPIRone (BUSPAR) 10 MG tablet Take 1 tablet (10 mg total) by mouth 3 (three) times daily. Active desvenlafaxine succinate (PRISTIQ) 50 MG 24 hr tablet Take 1 tablet (50 mg total) by mouth daily. Active Active Problems No known active problems Social History Tobacco Use Types Packs/Day Years Used Date Smoking Tobacco: Never Smokeless Tobacco: Never Tobacco Cessation:Counseling Given: Not Answered Food Insecurity Answer Date Recorded Food run out past 12 months Not on file 03/20 Food did not last past 12 months Not on file 04/07/2023 Employment Answer Date Recorded Help finding and keeping a job Not on file 0 04/07/2023 Family and Community Support Answer Felix e Recorded Help with Day to Day Activities Not on file 04/07/2023 Feeling Lonely or Isolated Not on file 04/07 Educational Attainment Answer Date Emanuel rded Speak language other than Maldivian at home Not on file 04/07/2023 Want help with school or training Not on file 04/07/2023 Substance Use Answer Date Recorded Used prescription meds for non-medical reasons N ot on file 04/07/2023 Used illegal drugs past 12 months Not on file 04/07/2023 Comments No Sex and Gender Information Value Date Recorded Sex Assigned at Not on file Legal Sex Female 6:33 PM CDT Gender Identity Not on file Sexual Orientation Not on file Last Filed Vital Signs Vital Sign Reading Time Taken Comments Blood Pressure 131/88 12/07/2023 5:43 PM EDT Pulse 92 12/07/2023 5:43 PM EDT Temperature 36.9 C (98.4 F) 12/07/2023 5:43 PM EDT Respiratory Rate 14 12/07/2023 5:43 PM EDT Oxygen Saturation 98% 12/07/2023 5:43 PM EDT Inhaled Oxygen Concentration - - Weight 75.1 kg (165 lb 8 oz) 12/07/2023 5:43 PM EDT Height 162.6 cm (5' 4 ) 12/07/2023 5:43 PM EDT Body Mass Index 28.41 12/07/2023 5:43 PM EDT Plan of Treatment [place] [address] [facility]
--- OUTSIDE RECORDS SUMMARY | 2024-10-30 10:59 | XMS_ITS | Encounter Summary ---
Author Organization [facility] Address [address] [place] [address] Care Team Providers Care Director Oracle Name Role Phone Luna Zheng APRN Primary Care Provider + [phone] Reason for Visit * Reason Onset Date Comments Med Refill 01/18/2023 Encounter Details Date Type Department Care Team (Late st Contact Info) Description 01/18/2023 Refill [facility] [address] [facility] [employer] [address] [id number] Luna Zheng APRN [address] [facility] [address] [address] Primary hypertension Social History Tobacco Use Types Packs/Day Years Used Date Smoking Tobacco: Never Smokeless Tobacco: Never Alcohol Use Standard Drinks/Week Comments Yes 0 (1 standard drink = 0.6 oz pur e alcohol) Socially PHQ-2 Answer Date Recorded Retired PHQ-9: Brief Depression Severity Measure Score 0 01/05/2023 PHQ-2 Answer Date Recorded Retired PHQ-9: Brief Depression Severity Measure Score 0 01/05/2023 Comments No Sex and Gender Information Value Date Recorded Sex Assigned at Female 07/05/2024 10:44 AM EDT Legal Sex Female 10:28 AM EDT Gender Identity Not on file Sexual Orientation Straight 07/05/2024 10 :44 AM EDT Occupation Industry Job Start Date Job End Date Nurse Not on file Not on file Not on file documented as of this encounter Miscellaneous Notes * Telephone Encounter - Chio Corral MA - 01/19/2023 1:21 PM EDT Rx Refill Note Requested Prescriptions Pending Prescriptions Disp Refills hydroCHLOROthiazide (HYDRODIURIL) 12.5 MG tablet 90 tablet 0 Sig: Take 1 tablet by mouth Daily. Last office visit with prescribing clinician: 01/05/2023 Last telemedicine visit with prescribing clinician: Visit date not found Next office visit with prescribing clinician: 05/09/2023 Shannan Cruz Rep 01/19/23, 13:21 EDT Rx sent documented in this encounter Plan of Treatment Upcoming Encounters Date Type Department Care Team (Late st Contact Info) Description 01/13/2025 11:15 AM EDT Office Visit [facility] [address] [phone] Luna Zheng APRN [address] [address] documented as of this encounter Visit Diagnoses Diagnosis Primary hypertension Unspecified essential hypertension documented in this encounter Care Teams Director Oracle Relationship Specialty Start Date End Date Luna Zheng APRN [address] [address] PCP - General Nurse Practitioner 05/09/23 documented as of this encounter
--- OUTSIDE RECORDS SUMMARY | 2024-10-30 10:59 | XMS_ITS | Patient Health Record ---
Author Organization [facility] Address [address] [place] [address] Care Team Providers Care Satellite Communications Engineer Name Role Phone [facility] Primary Care Provider Unavailable Allergies Allergen (clinical drug ingredient) Drug/Non Drug Allergy documented on EMR Reaction Allergy Type Onset Date Status ciprofloxacin Cipro rash Drug Allergy Act leoenl bupropion Wellbutrin SR rash Drug Allergy Act leonel Reason For Referral No Information Medications Medication SIG (Take, Route, Frequency, Duration) Notes Start Date End Date Status Lisinopril-hydroCHLOROthia zide 20-12.5 MG 1 tab(s) orally once a day; Duration: 30 day(s) Active Sprintec 28 0.25-35 MG-MCG 1 tab(s) oral ly once a day; Duration: 28 day(s) Active Social History Alcohol Misuse/Abuse (Audit C): Question Answer Notes Did you have a drink contain ing alcohol in the past year? Yes How often did you have a drink containing alcoho l? Monthly or less (1 point) How many drinks did you have on a typical occasi on? 1 or 2 (0 points) How often did you have six o r more drinks on one occasion? Never (0 points) Points: 1 Interpretation: Negative Section Notes: ( Record the patient's spe cific tobacco use history) Plan Of Treatment No Information Insurance Providers Payer Name Payer Address Payer Phone Subscriber Number Group Number Insured Name Patient Relationship to Insured Coverage Start Date Coverage End Date [facility] [address] [place] [address] [id number] ELVA TORRES Self - patient is the insured Medical (General) History Surgical History Surgery Date(Month/Year) Hospitalization History Reason Date(Month/Year) Bone disease as a child child
--- OUTSIDE RECORDS SUMMARY | 2024-10-30 10:59 | XMS_ITS | Clinical Summary ---
Author Organization [facility] ([place], [place], [place], [place]) Address [address] [place] [address] Care Team Providers Care Furnace Maintenance Name Role Phone Unavailable Primary Care Provider [...] Date Emanuel rded Speak language other than Eritrean at home Not on file 04/07/2023 Want [...] 12/07/2023 5:43 PM EDT Plan of Treatment Health Maintenance Due Date Last Done Comments CT Colonography 1972 Colonoscopy 1972 Colorectal Cancer Screening 1972 FOBT/FIT 1972 Fit-DNA (Cologuard) 1972 Sigmoidoscopy 1972 Depression Screening (12+) 1984 HIV Screening 09/24/1987 Hepatitis C Screening 1990 Pap Smear 1993 Breast Cancer Screening 2012 Pneumococcal 50+ years (1 of 1 - PCV) 2022 Shingles Vaccine (Zoster) (1 of 2) 2022 COVID-19 VACCINE (1 - season) 2023 Influenza Vaccine (#1) 2024 01/25/2022 Tobacco Cessation Counseling and Screening (12+) 12/06/2024 12/07/2023 Lipid Panel 11/12/2028 11/13/2023, 05/04/2022 DTAP/TDAP/TD VACCINES (2 - Td or Tdap) 05/04/[address] [place] [address] [facility]
== END 2024-10-29 23:59 | disposition home or self-care (01) ==
LOC: LAB.DROPOF 10-30 10:54
PROVIDERS: PCP Nurse Practitioner Family; Visit Provider Nurse Practitioner Family
DX: R35.0 Frequency of micturition (principal)
CPT/HCPCS: 87086